=== PATIENT | male | born 1975 | race Two or more races ===

== ENCOUNTER 2016-08-11 13:53 | Inpatient (IN) | payer OTHER ==
[2016-08-11 15:27] VITALS: BMI 23.4
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
[2016-08-11] MEDS ORDERED: IBUPROFEN 400 MG TABLET (FP) PO PRN (16:42)
[2016-08-11] MEDS ORDERED: guaiFENesin/D-METHORPHAN HB 10 ML UNIT-DOSE CUPS PO PRN (16:42)
[2016-08-11] MEDS ORDERED: hydrOXYzine PAMOATE 50 MG CAPSULE (FP) PO PRN (16:42)
[2016-08-11] MEDS ORDERED: ACETAMINOPHEN 325 MG TABLET (FP) PO PRN (16:42)
[2016-08-11] MEDS ORDERED: MAGNESIUM CITRATE 300 ML BOTTLE PO PRN (16:42)
[2016-08-11] MEDS ORDERED: LOPERAMIDE HCL 2 MG CAPSULE PO PRN (16:42)
[2016-08-11] MEDS ORDERED: MAGNESIUM HYDROX 2400MG/30ML ORAL SUSPENSION 30 ML CUP PO PRN (16:42)
[2016-08-11] MEDS ORDERED: P-EPHED 60MG/TRIPROLIDI 2.5MG TABLET PO PRN (16:42)
[2016-08-11] MEDS ORDERED: MENTHOL/PHENOL 1 EACH UD MM PRN (16:42)
[2016-08-11] MEDS ORDERED: MAG HYDROX/AL HYDROX/SIMETH 30 ML UNIT-DOSE CUP PO PRN (16:42)
[2016-08-11] MEDS ORDERED: NICOTINE POLACRILEX 2 MG GUM BUC PRN (16:42)
[2016-08-11] MEDS: THIAMINE HCL 100 MG TABLET (FP) PO SCH (21:26)
[2016-08-11] MEDS ORDERED: diphenhydrAMINE HCL 50 MG CAPSULE PO PRN (22:00)
[2016-08-11 23:02] LABS: URINE APPEARANCE SLCLOUDY; URINE BILIRUBIN NEGATIVE (NEGATIVE); URINE BLOOD NEGATIVE (NEGATIVE); URINE GLUCOSE (UA) NEGATIVE (NEGATIVE); URINE KETONE TRACE (NEGATIVE); URINE LEUK ESTERASE NEGATIVE (NEGATIVE); URINE NITRITE NEGATIVE (NEGATIVE); URINE PROTEIN NEGATIVE (NEGATIVE); URINE UROBILINOGEN NEGATIVE E.U./dl (0.2-1.0)
[2016-08-11 23:03] LABS: URINE COLOR YELLOW
[2016-08-12] MEDS: METHADONE HCL 10 MG TABLET PO SCH (09:53)
[2016-08-12] MEDS: PRENATAL VITAMINS W/ FOLIC ACID TABLET (FP) PO SCH (10:01)
[2016-08-12] MEDS: NICOTINE 21 MG/24 HOURS TOPICAL PATCH TD SCH (10:01)
--- NOTE | 2016-08-12 18:30 | EKG ---
Test Reason : Blood Pressure : / mmHG Vent. Rate : 069 BPM Atrial Rate : 069 BPM P-R Int : 178 ms QRS Dur : 116 ms QT Int : 418 ms P-R-T Axes : 067 094 068 degrees QTc Int : 447 ms NORMAL SINUS RHYTHM RIGHTWARD AXIS BORDERLINE ECG NO PREVIOUS ECGS AVAILABLE Confirmed by HAN MONTELONGO, JOSE MARIA ([id number]) on 08/12/2016 6:30:32 PM Referred By: Confirmed By:JOSE MARIA SHORT MD
[2016-08-12] MEDS: THIAMINE HCL 100 MG TABLET (FP) PO SCH (21:26)
[2016-08-13] MEDS: METHADONE HCL 10 MG TABLET PO SCH (06:53)
[2016-08-13 07:15] VITALS: BP 132/79; PULSE 58; TEMP 98.3
[2016-08-13 09:58] LABS: MCH 29.4 pg (25.7-33.7); MCHC 33.3 g/dl (32.0-35.9); MEAN CELL VOLUME 88.4 fl (80-96); MEAN PLT VOLUME 8.3 fl (7.5-11.1); PLATELET COUNT 211 K/MM3 (134-434); RDW 13.9 % (11.9-15.9); WHITE BLOOD COUNT 5.8 K/mm3 (4.0-10.0)
[2016-08-13 10:34] LABS: ALBUMIN 3.3 g/dl (3.4-5.0); ANION GAP 7 (8-16); BILIRUBIN,TOTAL 0.2 mg/dL (0.2-1.0); CO2 28 mmol/L (21-32); CREATININE 0.8 mg/dL (0.7-1.3); GLUCOSE,RANDOM 90 mg/dL (74-106); SGOT/AST 39 U/L (15-37); SGPT/ALT 45 U/L (12-78); TOT PROT 8.5 g/dl (6.4-8.2)
[2016-08-13 10:35] LABS: ALK PHOS 59 U/L (45-117)
[2016-08-13] MEDS: NICOTINE 21 MG/24 HOURS TOPICAL PATCH TD SCH (10:44)
[2016-08-13] MEDS: PRENATAL VITAMINS W/ FOLIC ACID TABLET (FP) PO SCH (10:44)
--- NOTE | 2016-08-13 10:46 | PN ---
S Progress Note Note: PATIENT DID NOT WANT TO COMPLETE TREATMENT,SEEN BY COUNSELOR,DID NOT WANT TO WAIT,SIGNED RELEASE AMA, PSYCHIATRIST SEX WORKER OR ESCORT NOTIFIED BY NURSE
--- NOTE | 2016-08-14 09:18 | PN ---
[facility] Progress Note Note: patient signed ama on 08/13 prior to be seen by a psychiatrist, please see medical staff notes
== END 2016-08-13 11:30 | disposition left against medical advice (07) | DRG 770 ==
LOC: YASAS 13:53 → Y5N 18:06
PROVIDERS: ADMIT Psychiatry & Neurology Psychiatry; ATTEND Psychiatry & Neurology Psychiatry
PROC: HZ42ZZZ Group Counseling for Substance Abuse Treatment, Cognitive-Behavioral (ICD-10-PCS; principal; 2016-08-13)
DX: F11.23 Opioid dependence with withdrawal (principal); F25.9 Schizoaffective disorder, unspecified; B19.9 Unspecified viral hepatitis without hepatic coma; B18.2 Chronic viral hepatitis C; Z21 Asymptomatic human immunodeficiency virus [HIV] infection status; R63.4 Abnormal weight loss; Z68.23 Body mass index [BMI] 23.0-23.9, adult
CPT/HCPCS: 36415; 80053; 81003; 85027; 86593; 93005; 93010

== ENCOUNTER 2016-11-22 11:13 | Inpatient (IN) | payer OTHER ==
[2016-11-22 12:12] VITALS: BMI 21.2
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
[2016-11-22] MEDS ORDERED: LOPERAMIDE HCL 2 MG CAPSULE PO PRN (15:05)
[2016-11-22] MEDS ORDERED: guaiFENesin/D-METHORPHAN HB 10 ML UNIT-DOSE CUPS PO PRN (15:05)
[2016-11-22] MEDS ORDERED: MAGNESIUM HYDROX 2400MG/30ML ORAL SUSPENSION 30 ML CUP PO PRN (15:05)
[2016-11-22] MEDS ORDERED: MAGNESIUM CITRATE 300 ML BOTTLE PO PRN (15:05)
[2016-11-22] MEDS ORDERED: diphenhydrAMINE HCL 50 MG CAPSULE PO PRN (15:05)
[2016-11-22] MEDS ORDERED: chlordiazePOXIDE HCL 25 MG CAPSULE PO PRN (15:05)
[2016-11-22] MEDS ORDERED: NICOTINE POLACRILEX 2 MG GUM BC PRN (15:05)
[2016-11-22] MEDS ORDERED: MENTHOL/PHENOL 1 EACH UD MM PRN (15:05)
[2016-11-22] MEDS ORDERED: IBUPROFEN 400 MG TABLET (FP) PO PRN (15:05)
[2016-11-22] MEDS ORDERED: P-EPHED 60MG/TRIPROLIDI 2.5MG TABLET PO PRN (15:05)
[2016-11-22] MEDS ORDERED: ACETAMINOPHEN 325 MG TABLET (FP) PO PRN (15:05)
[2016-11-22] MEDS ORDERED: hydrOXYzine PAMOATE 50 MG CAPSULE (FP) PO PRN (15:05)
[2016-11-22] MEDS ORDERED: MAG HYDROX/AL HYDROX/SIMETH 30 ML UNIT-DOSE CUP PO PRN (15:05)
[2016-11-22] MEDS ORDERED: chlordiazePOXIDE HCL 25 MG CAPSULE PO ONE (15:13)
[2016-11-22] MEDS: NICOTINE 21 MG/24 HOURS TOPICAL PATCH TD SCH (15:51)
--- NOTE | 2016-11-22 16:39 | CONSULT ---
[facility] Psychiatric Consult - Data Date of interview: 11/22/16 Admission source: [facility] Identifying data: Patient is approached for psychiatric interview.Two attempts.Mr Upton refused." Leave me alone.I don't want to see or talk to nobody (sic)." Expletives were also used.Nursing staff is made aware.
[2016-11-22] MEDS: chlordiazePOXIDE HCL 25 MG CAPSULE PO SCH ×2 (17:26→22:08)
[2016-11-22 17:54] LABS: URINE APPEARANCE TURBID; URINE BILIRUBIN NEGATIVE (NEGATIVE); URINE BLOOD NEGATIVE (NEGATIVE); URINE COLOR AMBER; URINE GLUCOSE (UA) NEGATIVE (NEGATIVE); URINE KETONE TRACE (NEGATIVE); URINE LEUK ESTERASE NEGATIVE (NEGATIVE); URINE NITRITE NEGATIVE (NEGATIVE); URINE UROBILINOGEN NEGATIVE E.U./dl (0.2-1.0)
[2016-11-22 17:58] LABS: URINE PROTEIN 1+ (NEGATIVE)
[2016-11-22 17:59] LABS: URINE HYALINE CAST 16 /lpf; URINE MUCUS MANY; URINE RBC 10 /hpf (0-3); URINE WBC 147 /hpf (3-5)
[2016-11-22] MEDS: THIAMINE HCL 100 MG TABLET (FP) PO SCH (22:07)
[2016-11-23] MEDS: chlordiazePOXIDE HCL 25 MG CAPSULE PO SCH ×4 (06:07→22:13)
[2016-11-23] MEDS: EMTRICITABINE 200MG/TENOFOVIR 300MG PO SCH (07:53)
[2016-11-23] MEDS: RITONAVIR 100 MG TABLET PO SCH (07:53)
[2016-11-23] MEDS: ATAZANAVIR SO4 300 MG CAPSULE PO SCH (07:53)
[2016-11-23] MEDS: METHADONE HCL 10 MG TABLET PO SCH (09:55)
[2016-11-23] MEDS: NICOTINE 21 MG/24 HOURS TOPICAL PATCH TD SCH (09:56)
[2016-11-23] MEDS: PRENATAL VITAMINS W/ FOLIC ACID TABLET (FP) PO SCH (09:57)
[2016-11-23] MEDS ORDERED: ONDANSETRON *ODT* 4 MG TABLET SL PRN (09:59)
[2016-11-23] MEDS ORDERED: ATAZANAVIR SO4 200 MG CAPSULE PO SCH (10:00)
[2016-11-23 10:03] LABS: CALCIUM 9.3 mg/dL (8.5-10.1)
[2016-11-23 10:09] LABS: ALBUMIN 3.8 g/dl (3.4-5.0); ALK PHOS 80 U/L (45-117); ANION GAP 8 (8-16); BILIRUBIN,TOTAL 2.8 mg/dL (0.2-1.0); CO2 31 mmol/L (21-32); COCKROFT - GAULT 88.19; GLUCOSE,RANDOM 96 mg/dL (74-106); SGOT/AST 49 U/L (15-37); SGPT/ALT 54 U/L (12-78); TOT PROT 8.5 g/dl (6.4-8.2)
[2016-11-23 10:27] LABS: MCH 30.3 pg (25.7-33.7); MCHC 34.1 g/dl (32.0-35.9); MEAN CELL VOLUME 89.1 fl (80-96); MEAN PLT VOLUME 8.9 fl (7.5-11.1); PLATELET COUNT 220 K/MM3 (134-434); RDW 14.1 % (11.9-15.9); WHITE BLOOD COUNT 9.5 K/mm3 (4.0-10.0)
--- NOTE | 2016-11-23 11:37 | EKG ---
Test Reason : Blood Pressure : / mmHG Vent. Rate : 056 BPM Atrial Rate : 056 BPM P-R Int : 246 ms QRS Dur : 108 ms QT Int : 462 ms P-R-T Axes : 063 095 070 degrees QTc Int : 445 ms SINUS BRADYCARDIA WITH 1ST DEGREE A-V BLOCK RIGHTWARD AXIS MINIMAL VOLTAGE CRITERIA FOR LVH, MAY BE NORMAL VARIANT BORDERLINE ECG WHEN COMPARED WITH ECG OF 11-AUG-2016 22:26, [place] INTERVAL HAS INCREASED Confirmed by TRENT ALATORRE MD ([id number]) on 11/23/2016 11:37:45 AM Referred By: Deng Jason Confirmed By:TRENT ALATORRE MD
--- NOTE | 2016-11-23 11:58 | PN ---
[facility] CIWA - CIWA Score Nausea/Vomitin Muscle Tremors: 3 Anxiety: 4-Mod. Anxious/Guarded Agitation: 2 Paroxysmal Sweats: 4-Forehead w/Sweat Beads Orientation: 0-Oriented Tacttile Disturbances: 1-Very Mild Itch/Numbness Auditory Disturbances: 0-None Visual Disturbances: 2-Mild Sensitivity Headache: 0-None Present CIWA-Ar Total Score: 22 [facility] Progress Note (SOAP) Subjective: Vomiting, Diarrhea, Sweating, Tremors, Anxious. Objective: PT. A & O X 3, OBSERVED AMBULATING ON UNIT. PT. DENIES ANY UNUSUAL URINARY SYMPTOMS (PAIN, FREQUENCY, BURNING, INCONTINENCE) . 11/23/16 11:55 Vital Signs Temperature 98.8 F 11/23/16 09:51 Pulse Rate 71 11/23/16 09:51 Respiratory Rate 18 11/23/16 09:51 Blood Pressure 105/67 11/23/16 09:51 O2 Sat by Pulse Oximetry (%) Laboratory Last Values WBC 9.5 K/mm3 (4.0-10.0) D 11/23/16 06:00 RBC 4.30 M/mm3 (4.00-5.60) 11/23/16 06:00 Hgb 13.0 GM/dL (11.7-16.9) 11/23/16 06:00 Hct 38.3 % (35.4-49) 11/23/16 06:00 MCV 89.1 fl (80-96) 11/23/16 06:00 MCHC 34.1 g/dl (32.0-35.9) 11/23/16 06:00 RDW 14.1 % (11.9-15.9) 11/23/16 06:00 Plt Count 220 K/MM3 (134-434) 11/23/16 06:00 MPV 8.9 fl (7.5-11.1) 11/23/16 06:00 Sodium 136 mmol/L (136-145) 11/23/16 06:00 Potassium 4.0 mmol/L (3.5-5.1) 11/23/16 06:00 Chloride 97 mmol/L (98-107) L 11/23/16 06:00 Carbon Dioxide 31 mmol/L (21-32) 11/23/16 06:00 Anion Gap 8 (8-16) 11/23/16 06:00 BUN 14 mg/dL (7-18) D 11/23/16 06:00 Creatinine 1.0 mg/dL (0.7-1.3) D 11/23/16 06:00 Creat Clearance w eGFR > 60 (>60) 11/23/16 06:00 Random Glucose 96 mg/dL (74-106) 11/23/16 06:00 Calcium 9.3 mg/dL (8.5-10.1) 11/23/16 06:00 Total Bilirubin 2.8 mg/dL (0.2-1.0) H D 11/23/16 06:00 AST 49 U/L (15-37) H D 11/23/16 06:00 ALT 54 U/L (12-78) 11/23/16 06:00 Alkaline Phosphatase 80 U/L (45-117) D 11/23/16 06:00 Total Protein 8.5 g/dl (6.4-8.2) H 11/23/16 06:00 Albumin 3.8 g/dl (3.4-5.0) 11/23/16 06:00 Urine Color Lori 11/22/16 15:30 Urine Appearance Turbid 11/22/16 15:30 Urine pH 5.0 (5.0-8.0) 11/22/16 15:30 Ur Specific [place] >= 1.030 (1.005-1.025) H 11/22/16 15:30 Urine Protein 1+ (NEGATIVE) H 11/22/16 15:30 Urine Glucose (UA) Negative (NEGATIVE) 11/22/16 15:30 Urine Ketones Trace (NEGATIVE) H 11/22/16 15:30 Urine Blood Negative (NEGATIVE) 11/22/16 15:30 Urine Nitrite Negative (NEGATIVE) 11/22/16 15:30 Urine Bilirubin Negative (NEGATIVE) 11/22/16 15:30 Urine Urobilinogen Negative E.U./dl (0.2-1.0) 11/22/16 15:30 Ur Leukocyte Esterase Negative (NEGATIVE) 11/22/16 15:30 Urine RBC 10 /hpf (0-3) 11/22/16 15:30 Urine WBC 147 /hpf (3-5) 11/22/16 15:30 Ur Epithelial Cells Rare /hpf (FEW) 11/22/16 15:30 Hyaline Casts 16 /lpf 11/22/16 15:30 Urine Mucus Many 11/22/16 15:30 LABS NOTED. 11/23/16 11:58 11/23/16 17:05 Assessment: 11/23/16 11:57 WITHDRAWAL SYMPTOMS. Plan: CONTINUE DETOX. REPEAT UA FOR ABNORMAL ADMISSION UA LEVELS. PRN ZOFRAN SL FOR VOMITING. PRN IMMODIUM FOR DIARRHEA. ADVISED PATIENT TO FOLLOW-UP WITH VISUAL MERCHANDISING ASSISTANT AFTER DISCHARGE FROM DETOX FOR GENERAL MEDICAL ASSESSMENT AND FOR ABNORMAL DETOX ADMISSION LAB VALUES.
[2016-11-23] MEDS: THIAMINE HCL 100 MG TABLET (FP) PO SCH (22:13)
[2016-11-23 23:18] LABS: URINE APPEARANCE CLEAR; URINE BILIRUBIN NEGATIVE (NEGATIVE); URINE BLOOD NEGATIVE (NEGATIVE); URINE COLOR LTYELLOW; URINE GLUCOSE (UA) NEGATIVE (NEGATIVE); URINE KETONE NEGATIVE (NEGATIVE); URINE LEUK ESTERASE NEGATIVE (NEGATIVE); URINE NITRITE NEGATIVE (NEGATIVE); URINE PROTEIN NEGATIVE (NEGATIVE); URINE UROBILINOGEN NEGATIVE E.U./dl (0.2-1.0)
[2016-11-24] MEDS: METHADONE HCL 10 MG TABLET PO SCH (05:22)
[2016-11-24] MEDS: chlordiazePOXIDE HCL 25 MG CAPSULE PO SCH ×2 (05:22→10:04)
[2016-11-24] MEDS: RITONAVIR 100 MG TABLET PO SCH (07:15)
[2016-11-24] MEDS: ATAZANAVIR SO4 300 MG CAPSULE PO SCH (07:16)
[2016-11-24] MEDS: EMTRICITABINE 200MG/TENOFOVIR 300MG PO SCH (07:17)
[2016-11-24] MEDS: PRENATAL VITAMINS W/ FOLIC ACID TABLET (FP) PO SCH (10:04)
[2016-11-24] MEDS: NICOTINE 21 MG/24 HOURS TOPICAL PATCH TD SCH (10:05)
--- NOTE | 2016-11-24 12:32 | PN ---
S CIWA - CIWA Score Nausea/Vomitin Muscle Tremors: 3 Anxiety: 4-Mod. Anxious/Guarded Agitation: 2 Paroxysmal Sweats: 3 Orientation: 0-Oriented Tacttile Disturbances: 2-Mild Itch/Numbness/Burn Auditory Disturbances: 0-None Visual Disturbances: 2-Mild Sensitivity Headache: 0-None Present CIWA-Ar Total Score: 18 [facility] Progress Note (SOAP) Subjective: Stomach Cramping, Diarrhea, Sweating, Interrupted Sleep. Objective: PT. A & O X 3, OBSERVED AMBULATING ON UNIT. PT. DENIES ANY UNUSUAL URINARY SYMPTOMS (BURNING, PAIN FREQUENCY, INCONTINENCE). 11/24/16 12:29 Vital Signs Temperature 97.8 F 11/24/16 09:56 Pulse Rate 66 11/24/16 09:56 Respiratory Rate 18 11/24/16 09:56 Blood Pressure 110/73 11/24/16 09:56 O2 Sat by Pulse Oximetry (%) Laboratory Last Values WBC 9.5 K/mm3 (4.0-10.0) D 11/23/16 06:00 RBC 4.30 M/mm3 (4.00-5.60) 11/23/16 06:00 Hgb 13.0 GM/dL (11.7-16.9) 11/23/16 06:00 Hct 38.3 % (35.4-49) 11/23/16 06:00 MCV 89.1 fl (80-96) 11/23/16 06:00 MCHC 34.1 g/dl (32.0-35.9) 11/23/16 06:00 RDW 14.1 % (11.9-15.9) 11/23/16 06:00 Plt Count 220 K/MM3 (134-434) 11/23/16 06:00 MPV 8.9 fl (7.5-11.1) 11/23/16 06:00 Sodium 136 mmol/L (136-145) 11/23/16 06:00 Potassium 4.0 mmol/L (3.5-5.1) 11/23/16 06:00 Chloride 97 mmol/L (98-107) L 11/23/16 06:00 Carbon Dioxide 31 mmol/L (21-32) 11/23/16 06:00 Anion Gap 8 (8-16) 11/23/16 06:00 BUN 14 mg/dL (7-18) D 11/23/16 06:00 Creatinine 1.0 mg/dL (0.7-1.3) D 11/23/16 06:00 Creat Clearance w eGFR > 60 (>60) 11/23/16 06:00 Random Glucose 96 mg/dL (74-106) 11/23/16 06:00 Calcium 9.3 mg/dL (8.5-10.1) 11/23/16 06:00 Total Bilirubin 2.8 mg/dL (0.2-1.0) H D 11/23/16 06:00 AST 49 U/L (15-37) H D 11/23/16 06:00 ALT 54 U/L (12-78) 11/23/16 06:00 Alkaline Phosphatase 80 U/L (45-117) D 11/23/16 06:00 Total Protein 8.5 g/dl (6.4-8.2) H 11/23/16 06:00 Albumin 3.8 g/dl (3.4-5.0) 11/23/16 06:00 Urine Color Ltyellow 11/23/16 23:00 Urine Appearance Clear 11/23/16 23:00 Urine pH 5.0 (5.0-8.0) 11/23/16 23:00 Ur Specific [place] 1.020 (1.005-1.025) 11/23/16 23:00 Urine Protein Negative (NEGATIVE) 11/23/16 23:00 Urine Glucose (UA) Negative (NEGATIVE) 11/23/16 23:00 Urine Ketones Negative (NEGATIVE) 11/23/16 23:00 Urine Blood Negative (NEGATIVE) 11/23/16 23:00 Urine Nitrite Negative (NEGATIVE) 11/23/16 23:00 Urine Bilirubin Negative (NEGATIVE) 11/23/16 23:00 Urine Urobilinogen Negative E.U./dl (0.2-1.0) 11/23/16 23:00 Ur Leukocyte Esterase Negative (NEGATIVE) 11/23/16 23:00 Urine RBC 10 /hpf (0-3) 11/22/16 15:30 Urine WBC 147 /hpf (3-5) 11/22/16 15:30 Ur Epithelial Cells Rare /hpf (FEW) 11/22/16 15:30 Hyaline Casts 16 /lpf 11/22/16 15:30 Urine Mucus Many 11/22/16 15:30 RPR Titer Nonreactive (NONREACTIVE) 11/23/16 06:00 LABS NOTED. RESULTS OF UA FROM 11/23/2016 NOTED. Assessment: 11/24/16 12:31 WITHDRAWAL SYMPTOMS. Plan: CONTINUE DETOX.
[2016-11-24] MEDS: chlordiazePOXIDE 5 MG CAPSULE PO SCH ×2 (17:48→22:19)
[2016-11-24] MEDS: THIAMINE HCL 100 MG TABLET (FP) PO SCH (22:19)
[2016-11-25] MEDS: chlordiazePOXIDE 5 MG CAPSULE PO SCH ×2 (06:01→10:14)
[2016-11-25] MEDS: METHADONE HCL 10 MG TABLET PO SCH (06:01)
[2016-11-25] MEDS: EMTRICITABINE 200MG/TENOFOVIR 300MG PO SCH (07:44)
[2016-11-25] MEDS: ATAZANAVIR SO4 300 MG CAPSULE PO SCH (07:44)
[2016-11-25] MEDS: RITONAVIR 100 MG TABLET PO SCH (07:45)
[2016-11-25] MEDS: PRENATAL VITAMINS W/ FOLIC ACID TABLET (FP) PO SCH (10:14)
[2016-11-25] MEDS: NICOTINE 21 MG/24 HOURS TOPICAL PATCH TD SCH (10:14)
[2016-11-25] MEDS: chlordiazePOXIDE HCL 10 MG CAPSULE PO SCH ×2 (17:50→22:10)
--- NOTE | 2016-11-25 18:29 | PN ---
[facility] Progress Note (SOAP) Subjective: Stomach Cramping, Interrupted Sleep, Tremors, Body Aches, Sweating. Objective: PT. A & O X 3, OBSERVED AMBULATING ON UNIT. 11/25/16 18:26 Vital Signs Temperature 96.5 F L 11/25/16 13:09 Pulse Rate 58 L 11/25/16 13:09 Respiratory Rate 18 11/25/16 13:09 Blood Pressure 102/61 11/25/16 13:09 O2 Sat by Pulse Oximetry (%) Laboratory Tests 11/22/16 11/23/16 11/23/16 15:30 06:00 06:00 WBC 9.5 D RBC 4.30 Hgb 13.0 Hct 38.3 MCV 89.1 MCHC 34.1 RDW 14.1 Plt Count 220 MPV 8.9 Sickle Cell Screen Sodium 136 Potassium 4.0 Chloride 97 L Carbon Dioxide 31 Anion Gap 8 BUN 14 D Creatinine 1.0 D Creat Clearance w eGFR > 60 Random Glucose 96 Calcium 9.3 Total Bilirubin 2.8 H D AST 49 H D ALT 54 Alkaline Phosphatase 80 D Total Protein 8.5 H Albumin 3.8 Urine Color Lori Urine Appearance Turbid Urine pH 5.0 Ur Specific [place] >= 1.030 H Urine Protein 1+ H Urine Glucose (UA) Negative Urine Ketones Trace H Urine Blood Negative Urine Nitrite Negative Urine Bilirubin Negative Urine Urobilinogen Negative Ur Leukocyte Esterase Negative Urine RBC 10 Urine WBC 147 Ur Epithelial Cells Rare Hyaline Casts 16 Urine Mucus Many RPR Titer 11/23/16 11/23/16 11/24/16 06:00 23:00 06:00 WBC RBC Hgb Hct MCV MCHC RDW Plt Count MPV Sickle Cell Screen Cancelled Sodium Potassium Chloride Carbon Dioxide Anion Gap BUN Creatinine Creat Clearance w eGFR Random Glucose Calcium Total Bilirubin AST ALT Alkaline Phosphatase Total Protein Albumin Urine Color Ltyellow Urine Appearance Clear Urine pH 5.0 Ur Specific [place] 1.020 Urine Protein Negative Urine Glucose (UA) Negative Urine Ketones Negative Urine Blood Negative Urine Nitrite Negative Urine Bilirubin Negative Urine Urobilinogen Negative Ur Leukocyte Esterase Negative Urine RBC Urine WBC Ur Epithelial Cells Hyaline Casts Urine Mucus RPR Titer Nonreactive LABS NOTED. Assessment: 11/25/16 18:27 WITHDRAWAL SYMPTOMS. Plan: CONTINUE DETOX.
[2016-11-25] MEDS: THIAMINE HCL 100 MG TABLET (FP) PO SCH (22:10)
[2016-11-25 22:33] VITALS: TEMP 97.5
[2016-11-26] MEDS: chlordiazePOXIDE HCL 10 MG CAPSULE PO SCH (05:35)
[2016-11-26] MEDS: METHADONE HCL 10 MG TABLET PO SCH (05:36)
[2016-11-26 06:33] VITALS: BP 101/67; PULSE 53
[2016-11-26] MEDS: ATAZANAVIR SO4 300 MG CAPSULE PO SCH (07:33)
[2016-11-26] MEDS: EMTRICITABINE 200MG/TENOFOVIR 300MG PO SCH (07:33)
[2016-11-26] MEDS: RITONAVIR 100 MG TABLET PO SCH (07:34)
--- NOTE | 2016-11-26 13:40 | DS ---
[facility] Detox Discharge Summary Admission Date: 11/22/16 Discharge Date: 11/26/16 - History Present History: Alcohol Dependence, Cocaine Dependence, Opioid Dependence, MMTP Pertinent Past History: Hepatitis C HIV - Physical Exam Results Vital Signs: Vital Signs Temperature 97.5 F L 11/26/16 06:33 Pulse Rate 53 L 11/26/16 06:33 Respiratory Rate 16 11/26/16 06:33 Blood Pressure 101/67 11/26/16 06:33 O2 Sat by Pulse Oximetry (%) Pertinent Admission Physical Exam Findings: Withdrawal symptoms Laboratory Tests 11/22/16 11/23/16 11/23/16 15:30 06:00 06:00 WBC 9.5 D RBC 4.30 Hgb 13.0 Hct 38.3 MCV 89.1 MCHC 34.1 RDW 14.1 Plt Count 220 MPV 8.9 Sickle Cell Screen Sodium 136 Potassium 4.0 Chloride 97 L Carbon Dioxide 31 Anion Gap 8 BUN 14 D Creatinine 1.0 D Creat Clearance w eGFR > 60 Random Glucose 96 Calcium 9.3 Total Bilirubin 2.8 H D AST 49 H D ALT 54 Alkaline Phosphatase 80 D Total Protein 8.5 H Albumin 3.8 Urine Color Lori Urine Appearance Turbid Urine pH 5.0 Ur Specific [place] >= 1.030 H Urine Protein 1+ H Urine Glucose (UA) Negative Urine Ketones Trace H Urine Blood Negative Urine Nitrite Negative Urine Bilirubin Negative Urine Urobilinogen Negative Ur Leukocyte Esterase Negative Urine RBC 10 Urine WBC 147 Ur Epithelial Cells Rare Hyaline Casts 16 Urine Mucus Many RPR Titer 11/23/16 11/23/16 11/24/16 06:00 23:00 06:00 WBC RBC Hgb Hct MCV MCHC RDW Plt Count MPV Sickle Cell Screen Cancelled Sodium Potassium Chloride Carbon Dioxide Anion Gap BUN Creatinine Creat Clearance w eGFR Random Glucose Calcium Total Bilirubin AST ALT Alkaline Phosphatase Total Protein Albumin Urine Color Ltyellow Urine Appearance Clear Urine pH 5.0 Ur Specific [place] 1.020 Urine Protein Negative Urine Glucose (UA) Negative Urine Ketones Negative Urine Blood Negative Urine Nitrite Negative Urine Bilirubin Negative Urine Urobilinogen Negative Ur Leukocyte Esterase Negative Urine RBC Urine WBC Ur Epithelial Cells Hyaline Casts Urine Mucus RPR Titer Nonreactive Labs noted - Treatment Hospital Course: Detox Protocol Followed, Detoxed Safely, Responded well, Discharged Condition Good - Medication Discharge Medications: Ambulatory Orders Atazanavir [Reyataz -] 400 mg PO DAILY 11/22/16 Emtricitabine/Tenofovir (Tdf) [Truvada 200 mg-300 mg Tablet] 1 each PO DAILY Quetiapine Fumarate [Seroquel -] 400 mg PO HS 11/22/16 Ritonavir [Norvir -] 100 mg PO DAILY 11/22/16 - Diagnosis (1) Opioid dependence Status: Active (2) bipolar disorder Status: Chronic (3) Alcohol dependence with uncomplicated withdrawal Status: Acute (4) Cocaine dependence, uncomplicated Status: Chronic (5) Hepatitis C Status: Chronic Qualifiers: Viral hepatitis chronicity: chronic Hepatic coma status: without hepatic coma Qualified Code(s): B18.2 - Chronic viral hepatitis C (6) Human immunodeficiency virus infection Status: Chronic (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
== END 2016-11-26 08:46 | disposition home or self-care (01) | DRG 773 ==
LOC: YASAS 11:13 → Y3N 13:35
PROVIDERS: ADMIT Internal Medicine Addiction Medicine; ATTEND Internal Medicine Addiction Medicine
PROC: HZ2ZZZZ Detoxification Services for Substance Abuse Treatment (ICD-10-PCS; principal; 2016-11-26)
DX: F11.20 Opioid dependence, uncomplicated (principal); F10.230 Alcohol dependence with withdrawal, uncomplicated; F17.210 Nicotine dependence, cigarettes, uncomplicated; F14.20 Cocaine dependence, uncomplicated; F31.9 Bipolar disorder, unspecified; F25.9 Schizoaffective disorder, unspecified; B18.2 Chronic viral hepatitis C; Z21 Asymptomatic human immunodeficiency virus [HIV] infection status
CPT/HCPCS: 36415; 80053; 81003; 81015; 85027; 86593; 93005; 93010

== ENCOUNTER 2017-02-08 13:08 | Inpatient (IN) | payer OTHER ==
[2017-02-08 15:08] VITALS: BMI 21.2
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
[2017-02-08] MEDS ORDERED: P-EPHED 60MG/TRIPROLIDI 2.5MG TABLET PO PRN (17:42)
[2017-02-08] MEDS ORDERED: MAGNESIUM HYDROX 2400MG/30ML ORAL SUSPENSION 30 ML CUP PO PRN (17:42)
[2017-02-08] MEDS ORDERED: MAGNESIUM CITRATE 300 ML BOTTLE PO PRN (17:42)
[2017-02-08] MEDS ORDERED: chlordiazePOXIDE HCL 25 MG CAPSULE PO PRN (17:42)
[2017-02-08] MEDS ORDERED: LOPERAMIDE HCL 2 MG CAPSULE PO PRN (17:42)
[2017-02-08] MEDS ORDERED: IBUPROFEN 400 MG TABLET (FP) PO PRN (17:42)
[2017-02-08] MEDS ORDERED: ACETAMINOPHEN 325 MG TABLET (FP) PO PRN (17:42)
[2017-02-08] MEDS ORDERED: MAG HYDROX/AL HYDROX/SIMETH 30 ML UNIT-DOSE CUP PO PRN (17:42)
[2017-02-08] MEDS ORDERED: MENTHOL/PHENOL 1 EACH UD MM PRN (17:42)
[2017-02-08] MEDS ORDERED: guaiFENesin/D-METHORPHAN HB 10 ML UNIT-DOSE CUPS PO PRN (17:42)
[2017-02-08] MEDS ORDERED: hydrOXYzine PAMOATE 50 MG CAPSULE (FP) PO PRN (17:42)
[2017-02-08] MEDS ORDERED: METHADONE HCL 10 MG TABLET (FOR DETOX USE ONLY) PO ONE ×2 (17:42→23:00)
[2017-02-08] MEDS ORDERED: chlordiazePOXIDE HCL 25 MG CAPSULE PO ONE (17:42)
[2017-02-08] MEDS: chlordiazePOXIDE HCL 25 MG CAPSULE PO SCH (22:20)
[2017-02-08] MEDS: diphenhydrAMINE HCL 50 MG CAPSULE PO PRN (22:21)
[2017-02-08] MEDS: THIAMINE HCL 100 MG TABLET (FP) PO SCH (22:21)
[2017-02-08 22:58] LABS: URINE APPEARANCE CLEAR; URINE BILIRUBIN NEGATIVE (NEGATIVE); URINE BLOOD NEGATIVE (NEGATIVE); URINE COLOR DKYELLOW; URINE GLUCOSE (UA) NEGATIVE (NEGATIVE); URINE KETONE NEGATIVE (NEGATIVE); URINE LEUK ESTERASE NEGATIVE (NEGATIVE); URINE NITRITE NEGATIVE (NEGATIVE); URINE PROTEIN NEGATIVE (NEGATIVE); URINE UROBILINOGEN NEGATIVE mg/dL (0.2-1.0)
[2017-02-09] MEDS: chlordiazePOXIDE HCL 25 MG CAPSULE PO SCH ×4 (06:10→22:10)
[2017-02-09] MEDS ORDERED: ATAZANAVIR SO4 200 MG CAPSULE PO SCH ×2 (10:00)
[2017-02-09] MEDS ORDERED: METHADONE HCL 10 MG TABLET (FOR DETOX USE ONLY) PO SCH (10:00)
[2017-02-09 10:09] LABS: MCHC 33.3 g/dl (32.0-35.9); MEAN CELL VOLUME 89.9 fl (80-96); PLATELET COUNT 209 K/MM3 (134-434); RDW 13.9 % (11.9-15.9); WHITE BLOOD COUNT 4.7 K/mm3 (4.0-10.0)
[2017-02-09] MEDS ORDERED: ATAZANAVIR SO4 300 MG CAPSULE PO SCH (10:12)
[2017-02-09] MEDS: PRENATAL VITAMINS W/ FOLIC ACID TABLET (FP) PO SCH (10:17)
--- NOTE | 2017-02-09 10:43 | CONSULT ---
[facility] Psychiatric Consult - Data Date of interview: 02/09/17 Admission source: [facility] Identifying data: Patient is approached on THREE occasions for psychiatric interview.Mr Upton refused to have any interaction with recruitment consultant.Psychiatric evaluation waived due to absence of cooperation on the part of the patient.Nursing staff is made aware.
[2017-02-09 10:50] LABS: ALBUMIN 3.1 g/dl (3.4-5.0); ALK PHOS 64 U/L (45-117); ANION GAP 5 (8-16); BILIRUBIN,TOTAL 0.2 mg/dL (0.2-1.0); CALCIUM 9.1 mg/dL (8.5-10.1); CO2 32 mmol/L (21-32); CREATININE 0.9 mg/dL (0.7-1.3); GLUCOSE,RANDOM 86 mg/dL (74-106); SGOT/AST 36 U/L (15-37); SGPT/ALT 43 U/L (12-78); TOT PROT 7.7 g/dl (6.4-8.2)
[2017-02-09] MEDS: ATAZANAVIR SO4 300 MG CAPSULE PO SCH (11:30)
[2017-02-09] MEDS: RITONAVIR 100 MG TABLET PO SCH (11:31)
[2017-02-09] MEDS: EMTRICITABINE 200MG/TENOFOVIR 300MG PO SCH (11:32)
--- NOTE | 2017-02-09 11:53 | PN ---
S CIWA - CIWA Score Nausea/Vomitin-No Nausea/No Vomiting Muscle Tremors: 4-Moderate,w/Arms Extend Anxiety: 4-Mod. Anxious/Guarded Agitation: 4-Moderately Restless Paroxysmal Sweats: 1-Minimal Palms Moist Orientation: 0-Oriented Tacttile Disturbances: 3-Moderate Itch/Numb/Burn Auditory Disturbances: 0-None Visual Disturbances: 0-None Headache: 0-None Present CIWA-Ar Total Score: 16 BHS COWS - Scale Resting Pulse: 0= [place] 80 or Below Sweatin= Chills/Flushing Restless Observation: 3= Extraneous Movement Pupil Size: 2= Moderately Dilated Bone or Joint Aches: 4=Acute Joint/Muscle Pain Runny Nose/ Eye Tearin= Nasal Congestion GI Upset > 30mins: 1= Stomach Cramp Tremor Observation of Outstretched Hands: 2= Slight Tremor Visible Yawning Observation: 2= >3x During Session Anxiety or Irritability: 2=Irritable/Anxious Goose Flesh Skin: 0=Smooth Skin COWS Score: 18 BHS Progress Note (SOAP) Subjective: ANXIETY,TREMORS,IRRITABILITY,SWEATS/CHILLS,INTERMITTENT SLEEP. ADDENDUM: PT STATES HE HAS HIS PCP AT [facility] BUT DOES NOT KNOW HIS PMD'S NAME. PT HAS BEEN NONCOMPLIANT WITH HIS ANTIRETROVIRAL MEDICATIONS AND I.D CLINIC FOLLOW UP VISITS PER PHARMACY RECORDS AND PT HX OF CONTINUOS ILLICIT DRUG AND ALCOHOL USE ON THE STREET. PT IS AWARE THAT HE HAS TO FOLLOW UP AT [facility] TO SEE HIS PMD AND ROUTINE WORKUP VISITS/RX UPON DISCHARGE AFTER DETOX. Objective: 02/09/17 11:47 Vital Signs Temperature 97.8 F 02/09/17 10:03 Pulse Rate 59 L 02/09/17 10:03 Respiratory Rate 18 02/09/17 10:03 Blood Pressure 109/71 02/09/17 10:03 O2 Sat by Pulse Oximetry (%) Laboratory Last Values WBC 4.7 K/mm3 (4.0-10.0) D 02/09/17 07:30 RBC 4.11 M/mm3 (4.00-5.60) 02/09/17 07:30 Hgb 12.3 GM/dL (11.7-16.9) 02/09/17 07:30 Hct 37.0 % (35.4-49) 02/09/17 07:30 MCV 89.9 fl (80-96) 02/09/17 07:30 MCH 30.0 pg (25.7-33.7) 02/09/17 07:30 MCHC 33.3 g/dl (32.0-35.9) 02/09/17 07:30 RDW 13.9 % (11.9-15.9) 02/09/17 07:30 Plt Count 209 K/MM3 (134-434) 02/09/17 07:30 MPV 8.0 fl (7.5-11.1) D 02/09/17 07:30 Sodium 139 mmol/L (136-145) 02/09/17 07:30 Potassium 4.3 mmol/L (3.5-5.1) 02/09/17 07:30 Chloride 102 mmol/L (98-107) 02/09/17 07:30 Carbon Dioxide 32 mmol/L (21-32) 02/09/17 07:30 Anion Gap 5 (8-16) L 02/09/17 07:30 BUN 10 mg/dL (7-18) D 02/09/17 07:30 Creatinine 0.9 mg/dL (0.7-1.3) 02/09/17 07:30 Creat Clearance w eGFR > 60 (>60) 02/09/17 07:30 Random Glucose 86 mg/dL (74-106) 02/09/17 07:30 Calcium 9.1 mg/dL (8.5-10.1) 02/09/17 07:30 Total Bilirubin 0.2 mg/dL (0.2-1.0) D 02/09/17 07:30 AST 36 U/L (15-37) D 02/09/17 07:30 ALT 43 U/L (12-78) D 02/09/17 07:30 Alkaline Phosphatase 64 U/L (45-117) 02/09/17 07:30 Total Protein 7.7 g/dl (6.4-8.2) 02/09/17 07:30 Albumin 3.1 g/dl (3.4-5.0) L 02/09/17 07:30 Urine Color Dkyellow 02/08/17 22:50 Urine Appearance Clear 02/08/17 22:50 Urine pH 6.0 (5.0-8.0) 02/08/17 22:50 Urine Protein Negative (NEGATIVE) 02/08/17 22:50 Urine Glucose (UA) Negative (NEGATIVE) 02/08/17 22:50 Urine Ketones Negative (NEGATIVE) 02/08/17 22:50 Urine Blood Negative (NEGATIVE) 02/08/17 22:50 Urine Nitrite Negative (NEGATIVE) 02/08/17 22:50 Urine Bilirubin Negative (NEGATIVE) 02/08/17 22:50 Urine Urobilinogen Negative mg/dL (0.2-1.0) 02/08/17 22:50 Ur Leukocyte Esterase Negative (NEGATIVE) 02/08/17 22:50 Assessment: 02/09/17 11:47 WITHDRAWAL SX Plan: CONTININUE DETOX.
[2017-02-09] MEDS: diphenhydrAMINE HCL 50 MG CAPSULE PO PRN (22:10)
[2017-02-09] MEDS: THIAMINE HCL 100 MG TABLET (FP) PO SCH (22:10)
[2017-02-10] MEDS: chlordiazePOXIDE HCL 25 MG CAPSULE PO SCH ×3 (05:37→17:31)
--- NOTE | 2017-02-10 08:16 | EKG ---
Test Reason : Blood Pressure : / mmHG Vent. Rate : 051 BPM Atrial Rate : 051 BPM P-R Int : 170 ms QRS Dur : 104 ms QT Int : 468 ms P-R-T Axes : 064 095 070 degrees QTc Int : 431 ms SINUS BRADYCARDIA WITH SINUS ARRHYTHMIA RIGHTWARD AXIS BORDERLINE ECG WHEN COMPARED WITH ECG OF 22-NOV-2016 15:01, [place] INTERVAL HAS DECREASED Confirmed by GIBRAN MONTERROOS MD ([id number]) on 02/10/2017 8:16:00 AM Referred By: Confirmed By:GIBRAN MONTERROSO MD
[2017-02-10] MEDS: ATAZANAVIR SO4 300 MG CAPSULE PO SCH (10:22)
[2017-02-10] MEDS: PRENATAL VITAMINS W/ FOLIC ACID TABLET (FP) PO SCH (10:22)
[2017-02-10] MEDS: METHADONE HCL 5 MG TABLET (FOR DETOX USE ONLY) PO SCH (10:23)
[2017-02-10] MEDS: EMTRICITABINE 200MG/TENOFOVIR 300MG PO SCH (10:23)
[2017-02-10] MEDS: RITONAVIR 100 MG TABLET PO SCH (10:24)
[2017-02-10] MEDS ORDERED: ONDANSETRON *ODT* 4 MG TABLET SL PRN (11:28)
--- NOTE | 2017-02-10 17:47 | PN ---
[facility] CIWA - CIWA Score Nausea/Vomitin Muscle Tremors: 3 Anxiety: 3 Agitation: 2 Paroxysmal Sweats: 3 Orientation: 0-Oriented Tacttile Disturbances: 0-None Auditory Disturbances: 0-None Visual Disturbances: 2-Mild Sensitivity Headache: 0-None Present CIWA-Ar Total Score: 18 BHS COWS - Scale Resting Pulse: 0= [place] 80 or Below Sweatin=Flushed/Facial Moisture Restless Observation: 1= Difficult to Sit Still Pupil Size: 0= Normal to Room Light Bone or Joint Aches: 2= Severe Diffuse Aches Runny Nose/ Eye Tearin= Runny Nose/Eyes GI Upset > 30mins: 3= Vomiting/Diarrhea Tremor Observation of Outstretched Hands: 2= Slight Tremor Visible Yawning Observation: 1= 1-2x During Session Anxiety or Irritability: 2=Irritable/Anxious Goose Flesh Skin: 0=Smooth Skin COWS Score: 15 S Progress Note (SOAP) Subjective: Stomach Cramping, Vomiting, Lower Back Ache, Sweating, Interrupted Sleep. Objective: PT. A & O X 3. NO ACUTE DISTRESS. 02/10/17 17:46 Vital Signs Temperature 96.5 F L 02/10/17 14:19 Pulse Rate 52 L 02/10/17 14:19 Respiratory Rate 20 02/10/17 14:19 Blood Pressure 105/70 02/10/17 14:19 O2 Sat by Pulse Oximetry (%) Laboratory Tests 02/08/17 02/09/17 02/09/17 22:50 07:30 07:30 WBC 4.7 D RBC 4.11 Hgb 12.3 Hct 37.0 MCV 89.9 MCH 30.0 MCHC 33.3 RDW 13.9 Plt Count 209 MPV 8.0 D Sodium 139 Potassium 4.3 Chloride 102 Carbon Dioxide 32 Anion Gap 5 L BUN 10 D Creatinine 0.9 Creat Clearance w eGFR > 60 Random Glucose 86 Calcium 9.1 Total Bilirubin 0.2 D AST 36 D ALT 43 D Alkaline Phosphatase 64 Total Protein 7.7 Albumin 3.1 L Urine Color Dkyellow Urine Appearance Clear Urine pH 6.0 Ur Specific [place] 1.025 Urine Protein Negative Urine Glucose (UA) Negative Urine Ketones Negative Urine Blood Negative Urine Nitrite Negative Urine Bilirubin Negative Urine Urobilinogen Negative Ur Leukocyte Esterase Negative RPR Titer 02/09/17 07:30 WBC RBC Hgb Hct MCV MCH MCHC RDW Plt Count MPV Sodium Potassium Chloride Carbon Dioxide Anion Gap BUN Creatinine Creat Clearance w eGFR Random Glucose Calcium Total Bilirubin AST ALT Alkaline Phosphatase Total Protein Albumin Urine Color Urine Appearance Urine pH Ur Specific [place] Urine Protein Urine Glucose (UA) Urine Ketones Urine Blood Urine Nitrite Urine Bilirubin Urine Urobilinogen Ur Leukocyte Esterase RPR Titer Nonreactive labs noted. Assessment: 02/10/17 17:46 WITHDRAWAL SYMPTOMS. Plan: CONTINUE DETOX.
[2017-02-10] MEDS: THIAMINE HCL 100 MG TABLET (FP) PO SCH (22:27)
[2017-02-10] MEDS: chlordiazePOXIDE 5 MG CAPSULE PO SCH (22:27)
[2017-02-10] MEDS: diphenhydrAMINE HCL 50 MG CAPSULE PO PRN (22:29)
[2017-02-11] MEDS: chlordiazePOXIDE 5 MG CAPSULE PO SCH ×3 (05:54→17:40)
[2017-02-11] MEDS: ATAZANAVIR SO4 300 MG CAPSULE PO SCH (10:31)
[2017-02-11] MEDS: PRENATAL VITAMINS W/ FOLIC ACID TABLET (FP) PO SCH (10:31)
[2017-02-11] MEDS: METHADONE HCL 5 MG TABLET (FOR DETOX USE ONLY) PO SCH (10:31)
[2017-02-11] MEDS: RITONAVIR 100 MG TABLET PO SCH (10:32)
[2017-02-11] MEDS: EMTRICITABINE 200MG/TENOFOVIR 300MG PO SCH (10:32)
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
[2017-02-11] MEDS: chlordiazePOXIDE HCL 10 MG CAPSULE PO SCH (22:26)
[2017-02-11] MEDS: THIAMINE HCL 100 MG TABLET (FP) PO SCH (22:26)
[2017-02-11] MEDS: diphenhydrAMINE HCL 50 MG CAPSULE PO PRN (22:26)
[2017-02-12] MEDS: chlordiazePOXIDE HCL 10 MG CAPSULE PO SCH ×3 (05:24→18:00)
[2017-02-12] MEDS ORDERED: METHADONE HCL 10 MG TABLET (FOR DETOX USE ONLY) PO SCH (10:00)
[2017-02-12] MEDS: RITONAVIR 100 MG TABLET PO SCH (10:23)
[2017-02-12] MEDS: PRENATAL VITAMINS W/ FOLIC ACID TABLET (FP) PO SCH (10:23)
[2017-02-12] MEDS: ATAZANAVIR SO4 300 MG CAPSULE PO SCH (10:23)
[2017-02-12] MEDS: EMTRICITABINE 200MG/TENOFOVIR 300MG PO SCH (10:24)
--- NOTE | 2017-02-12 10:24 | PN ---
BHS Progress Note (SOAP) Subjective: anxiety sweats Objective: 02/12/17 10:15 Vital Signs Temperature 98.1 F 02/12/17 09:59 Pulse Rate 63 02/12/17 09:59 Respiratory Rate 18 02/12/17 09:59 Blood Pressure 125/62 02/12/17 09:59 O2 Sat by Pulse Oximetry (%) awake/alert ambulating no acute distress Assessment: 02/12/17 10:15 withdrawal sx Plan: continue detox d/c in am
[2017-02-12] MEDS: THIAMINE HCL 100 MG TABLET (FP) PO SCH (22:23)
[2017-02-12] MEDS: diphenhydrAMINE HCL 50 MG CAPSULE PO PRN (22:23)
[2017-02-13] MEDS ORDERED: METHADONE HCL 5 MG TABLET (FOR DETOX USE ONLY) PO SCH (06:00)
[2017-02-13 06:22] VITALS: BP 104/59; PULSE 46; TEMP 97.5
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
[2017-02-13] MEDS: ATAZANAVIR SO4 300 MG CAPSULE PO SCH (09:13)
[2017-02-13] MEDS: EMTRICITABINE 200MG/TENOFOVIR 300MG PO SCH (09:13)
[2017-02-13] MEDS: PRENATAL VITAMINS W/ FOLIC ACID TABLET (FP) PO SCH (09:14)
[2017-02-13] MEDS: RITONAVIR 100 MG TABLET PO SCH (09:15)
== END 2017-02-13 09:05 | disposition home or self-care (01) | DRG 773 ==
LOC: YASAS 13:08 → Y3N 18:16 → Y6N 02-11 11:29
PROVIDERS: ADMIT Internal Medicine; ATTEND Internal Medicine
PROC: HZ2ZZZZ Detoxification Services for Substance Abuse Treatment (ICD-10-PCS; principal; 2017-02-08)
DX: F11.23 Opioid dependence with withdrawal (principal); F10.230 Alcohol dependence with withdrawal, uncomplicated; F14.20 Cocaine dependence, uncomplicated; F17.210 Nicotine dependence, cigarettes, uncomplicated; F25.9 Schizoaffective disorder, unspecified; F31.9 Bipolar disorder, unspecified; B18.2 Chronic viral hepatitis C; Z21 Asymptomatic human immunodeficiency virus [HIV] infection status; Z87.898 Personal history of other specified conditions
CPT/HCPCS: 36415; 80053; 81003; 85027; 86593; 93005; 93010

== ENCOUNTER 2017-05-23 12:15 | Inpatient (IN) | payer OTHER ==
[2017-05-23 15:19] VITALS: BMI 22.1
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
[2017-05-23] MEDS ORDERED: MAG HYDROX/AL HYDROX/SIMETH 30 ML UNIT-DOSE CUP PO PRN (16:26)
[2017-05-23] MEDS ORDERED: P-EPHED 60MG/TRIPROLIDI 2.5MG TABLET PO PRN (16:26)
[2017-05-23] MEDS ORDERED: ACETAMINOPHEN 325 MG TABLET (FP) PO PRN (16:26)
[2017-05-23] MEDS ORDERED: IBUPROFEN 400 MG TABLET (FP) PO PRN (16:26)
[2017-05-23] MEDS ORDERED: MAGNESIUM HYDROX 2400MG/30ML ORAL SUSPENSION 30 ML CUP PO PRN (16:26)
[2017-05-23] MEDS ORDERED: MENTHOL/PHENOL 1 EACH UD MM PRN (16:26)
[2017-05-23] MEDS ORDERED: MAGNESIUM CITRATE 300 ML BOTTLE PO PRN (16:26)
[2017-05-23] MEDS ORDERED: NICOTINE POLACRILEX 2 MG GUM BC PRN (16:26)
[2017-05-23] MEDS ORDERED: chlordiazePOXIDE HCL 25 MG CAPSULE PO PRN (16:26)
[2017-05-23] MEDS ORDERED: guaiFENesin/D-METHORPHAN HB 10 ML UNIT-DOSE CUPS PO PRN (16:26)
[2017-05-23] MEDS ORDERED: LOPERAMIDE HCL 2 MG CAPSULE PO PRN (16:26)
[2017-05-23] MEDS ORDERED: METHADONE HCL 10 MG TABLET (FOR DETOX USE ONLY) PO ONE ×2 (19:30→23:00)
[2017-05-23] MEDS: chlordiazePOXIDE HCL 25 MG CAPSULE PO SCH (22:11)
[2017-05-23] MEDS: THIAMINE HCL 100 MG TABLET (FP) PO SCH (22:11)
[2017-05-23 22:33] LABS: URINE APPEARANCE SLCLOUDY; URINE BILIRUBIN NEGATIVE (NEGATIVE); URINE BLOOD NEGATIVE (NEGATIVE); URINE COLOR AMBER; URINE GLUCOSE (UA) NEGATIVE (NEGATIVE); URINE KETONE TRACE (NEGATIVE); URINE NITRITE NEGATIVE (NEGATIVE); URINE PROTEIN 1+ (NEGATIVE); URINE UROBILINOGEN NEGATIVE mg/dL (0.2-1.0)
[2017-05-23 22:44] LABS: URINE MUCUS FEW; URINE RBC 1; URINE WBC 1
[2017-05-24] MEDS: chlordiazePOXIDE HCL 25 MG CAPSULE PO SCH ×4 (05:26→22:21)
[2017-05-24] MEDS ORDERED: METHADONE HCL 10 MG TABLET (FOR DETOX USE ONLY) PO SCH (10:00)
[2017-05-24] MEDS: NICOTINE 14 MG/24 HOURS TOPICAL PATCH TD SCH (10:02)
[2017-05-24] MEDS: PRENATAL VITAMINS W/ FOLIC ACID TABLET (FP) PO SCH (10:02)
[2017-05-24 10:21] LABS: MCH 28.8 pg (25.7-33.7); MCHC 32.8 g/dl (32.0-35.9); MEAN CELL VOLUME 87.8 fl (80-96); MEAN PLT VOLUME 8.3 fl (7.5-11.1); PLATELET COUNT 257 K/MM3 (134-434); RDW 14.1 % (11.9-15.9); WHITE BLOOD COUNT 6.9 K/mm3 (4.0-10.0)
[2017-05-24 10:35] LABS: URINE LEUK ESTERASE Negative (NEGATIVE)
[2017-05-24 11:03] LABS: ALBUMIN 2.9 g/dl (3.4-5.0); ALK PHOS 64 U/L (45-117); ANION GAP 7 (8-16); BILIRUBIN,TOTAL 0.4 mg/dL (0.2-1.0); CALCIUM 8.2 mg/dL (8.5-10.1); CO2 28 mmol/L (21-32); CREATININE 0.9 mg/dL (0.7-1.3); GLUCOSE,RANDOM 89 mg/dL (74-106); SGOT/AST 27 U/L (15-37); SGPT/ALT 36 U/L (12-78); TOT PROT 7.7 g/dl (6.4-8.2)
--- NOTE | 2017-05-24 12:37 | EKG ---
Test Reason : Blood Pressure : / mmHG Vent. Rate : 061 BPM Atrial Rate : 061 BPM P-R Int : 166 ms QRS Dur : 106 ms QT Int : 448 ms P-R-T Axes : 062 095 066 degrees QTc Int : 450 ms NORMAL SINUS RHYTHM RIGHTWARD AXIS BORDERLINE ECG WHEN COMPARED WITH ECG OF 08-FEB-2017 18:52, NO SIGNIFICANT CHANGE WAS FOUND Confirmed by TRENT ALATORRE MD ([id number]) on 05/24/2017 12:37:20 PM Referred By: Confirmed By:TRENT ALATORRE MD
--- NOTE | 2017-05-24 17:29 | PN ---
S CIWA - CIWA Score Nausea/Vomitin Muscle Tremors: None Anxiety: 3 Agitation: 3 Paroxysmal Sweats: 3 Orientation: 0-Oriented Tacttile Disturbances: 2-Mild Itch/Numbness/Burn Auditory Disturbances: 0-None Visual Disturbances: 1-Very Mild Sensitivity Headache: 4-Moderately Severe CIWA-Ar Total Score: 21 BHS COWS - Scale Resting Pulse: 0= [place] 80 or Below Sweatin= Chills/Flushing Restless Observation: 1= Difficult to Sit Still Pupil Size: 0= Normal to Room Light Bone or Joint Aches: 1= Mild Discomfort Runny Nose/ Eye Tearin= None GI Upset > 30mins: 3= Vomiting/Diarrhea Tremor Observation of Outstretched Hands: 2= Slight Tremor Visible Yawning Observation: 1= 1-2x During Session Anxiety or Irritability: 2=Irritable/Anxious Goose Flesh Skin: 3=Piloerection COWS Score: 14 BHS Progress Note (SOAP) Subjective: Interrupted Sleep, Stomach Cramping, Body Aches, Vomiting, H/A, Sweating. Objective: PT. A & O X 3. NO ACUTE DISTRESS. 05/24/17 17:27 Vital Signs Temperature 98.2 F 05/24/17 17:07 Pulse Rate 60 05/24/17 17:07 Respiratory Rate 19 05/24/17 17:07 Blood Pressure 116/60 05/24/17 17:07 O2 Sat by Pulse Oximetry (%) Laboratory Tests 05/23/17 05/24/17 05/24/17 19:12 04:00 04:00 WBC 6.9 D RBC 4.49 Hgb 12.9 Hct 39.4 MCV 87.8 MCH 28.8 MCHC 32.8 RDW 14.1 Plt Count 257 D MPV 8.3 Sodium 139 Potassium 4.3 Chloride 104 Carbon Dioxide 28 Anion Gap 7 L BUN 16 D Creatinine 0.9 Creat Clearance w eGFR > 60 Random Glucose 89 Calcium 8.2 L Total Bilirubin 0.4 D AST 27 D ALT 36 Alkaline Phosphatase 64 Total Protein 7.7 Albumin 2.9 L Urine Color Lori Urine Appearance Slcloudy Urine pH 6.0 Ur Specific [place] 1.026 Urine Protein 1+ H Urine Glucose (UA) Negative Urine Ketones Trace H Urine Blood Negative Urine Nitrite Negative Urine Bilirubin Negative Urine Urobilinogen Negative Ur Leukocyte Esterase Negative Urine WBC (Auto) 1 Urine RBC (Auto) 1 Ur Epithelial Cells Rare Urine Mucus Few RPR Titer 05/24/17 04:00 WBC RBC Hgb Hct MCV MCH MCHC RDW Plt Count MPV Sodium Potassium Chloride Carbon Dioxide Anion Gap BUN Creatinine Creat Clearance w eGFR Random Glucose Calcium Total Bilirubin AST ALT Alkaline Phosphatase Total Protein Albumin Urine Color Urine Appearance Urine pH Ur Specific [place] Urine Protein Urine Glucose (UA) Urine Ketones Urine Blood Urine Nitrite Urine Bilirubin Urine Urobilinogen Ur Leukocyte Esterase Urine WBC (Auto) Urine RBC (Auto) Ur Epithelial Cells Urine Mucus RPR Titer Nonreactive LABS NOTED. Assessment: 05/24/17 17:28 WITHDRAWAL SYMPTOMS. Plan: CONTINUE DETOX.
[2017-05-24] MEDS: THIAMINE HCL 100 MG TABLET (FP) PO SCH (22:21)
[2017-05-25] MEDS: chlordiazePOXIDE HCL 25 MG CAPSULE PO SCH ×3 (05:35→17:19)
[2017-05-25] MEDS: NICOTINE 14 MG/24 HOURS TOPICAL PATCH TD SCH (10:10)
[2017-05-25] MEDS: METHADONE HCL 5 MG TABLET (FOR DETOX USE ONLY) PO SCH (10:10)
[2017-05-25] MEDS: PRENATAL VITAMINS W/ FOLIC ACID TABLET (FP) PO SCH (10:10)
--- NOTE | 2017-05-25 14:53 | PN ---
S CIWA - CIWA Score Nausea/Vomitin Muscle Tremors: 4-Moderate,w/Arms Extend Anxiety: 3 Agitation: 3 Paroxysmal Sweats: 3 Orientation: 0-Oriented Tacttile Disturbances: 2-Mild Itch/Numbness/Burn Auditory Disturbances: 0-None Visual Disturbances: 2-Mild Sensitivity Headache: 0-None Present CIWA-Ar Total Score: 20 BHS COWS - Scale Resting Pulse: 0= [place] 80 or Below Sweatin= Chills/Flushing Restless Observation: 1= Difficult to Sit Still Pupil Size: 0= Normal to Room Light Bone or Joint Aches: 2= Severe Diffuse Aches Runny Nose/ Eye Tearin= None GI Upset > 30mins: 2= Nausea/Diarrhea Tremor Observation of Outstretched Hands: 0= None Yawning Observation: 1= 1-2x During Session Anxiety or Irritability: 2=Irritable/Anxious Goose Flesh Skin: 3=Piloerection COWS Score: 12 S Progress Note (SOAP) Subjective: Vomiting, Diarrhea, Interrupted sleep, Sweating. Objective: PT. A & O X 3, OBSERVED AMBULATING ON UNIT. NO ACUTE DISTRESS. 05/25/17 14:51 Vital Signs Temperature 97.7 F 05/25/17 13:42 Pulse Rate 60 05/25/17 13:42 Respiratory Rate 20 05/25/17 13:42 Blood Pressure 124/79 05/25/17 13:42 O2 Sat by Pulse Oximetry (%) Laboratory Tests 05/23/17 05/24/17 05/24/17 19:12 04:00 04:00 WBC 6.9 D RBC 4.49 Hgb 12.9 Hct 39.4 MCV 87.8 MCH 28.8 MCHC 32.8 RDW 14.1 Plt Count 257 D MPV 8.3 Sodium 139 Potassium 4.3 Chloride 104 Carbon Dioxide 28 Anion Gap 7 L BUN 16 D Creatinine 0.9 Creat Clearance w eGFR > 60 Random Glucose 89 Calcium 8.2 L Total Bilirubin 0.4 D AST 27 D ALT 36 Alkaline Phosphatase 64 Total Protein 7.7 Albumin 2.9 L Urine Color Lori Urine Appearance Slcloudy Urine pH 6.0 Ur Specific [place] 1.026 Urine Protein 1+ H Urine Glucose (UA) Negative Urine Ketones Trace H Urine Blood Negative Urine Nitrite Negative Urine Bilirubin Negative Urine Urobilinogen Negative Ur Leukocyte Esterase Negative Urine WBC (Auto) 1 Urine RBC (Auto) 1 Ur Epithelial Cells Rare Urine Mucus Few RPR Titer 05/24/17 04:00 WBC RBC Hgb Hct MCV MCH MCHC RDW Plt Count MPV Sodium Potassium Chloride Carbon Dioxide Anion Gap BUN Creatinine Creat Clearance w eGFR Random Glucose Calcium Total Bilirubin AST ALT Alkaline Phosphatase Total Protein Albumin Urine Color Urine Appearance Urine pH Ur Specific [place] Urine Protein Urine Glucose (UA) Urine Ketones Urine Blood Urine Nitrite Urine Bilirubin Urine Urobilinogen Ur Leukocyte Esterase Urine WBC (Auto) Urine RBC (Auto) Ur Epithelial Cells Urine Mucus RPR Titer Nonreactive LABS NOTED. Assessment: 05/25/17 14:51 WITHDRAWAL SYMPTOMS. Plan: CONTINUE DETOX.
[2017-05-25] MEDS: hydrOXYzine PAMOATE 50 MG CAPSULE (FP) PO PRN (22:16)
[2017-05-25] MEDS: THIAMINE HCL 100 MG TABLET (FP) PO SCH (22:16)
[2017-05-25] MEDS: chlordiazePOXIDE 5 MG CAPSULE PO SCH (22:17)
[2017-05-26] MEDS: chlordiazePOXIDE 5 MG CAPSULE PO SCH ×3 (05:47→18:42)
[2017-05-26] MEDS: PRENATAL VITAMINS W/ FOLIC ACID TABLET (FP) PO SCH (11:15)
[2017-05-26] MEDS: METHADONE HCL 5 MG TABLET (FOR DETOX USE ONLY) PO SCH (11:15)
[2017-05-26] MEDS: NICOTINE 14 MG/24 HOURS TOPICAL PATCH TD SCH (11:15)
--- NOTE | 2017-05-26 14:59 | PN ---
BHS Progress Note (SOAP) Subjective: Stomach Cramping, Interrupted Sleep, Diarrhea, H/A, Fatigue. Objective: PT. A & O X 3, OBSERVED AMBULATING ON UNIT. NO ACUTE DISTRESS. 05/26/17 14:57 Vital Signs Temperature 98.3 F 05/26/17 14:34 Pulse Rate 77 05/26/17 14:34 Respiratory Rate 18 05/26/17 14:34 Blood Pressure 115/77 05/26/17 14:34 O2 Sat by Pulse Oximetry (%) Laboratory Tests 05/23/17 05/24/17 05/24/17 19:12 04:00 04:00 WBC 6.9 D RBC 4.49 Hgb 12.9 Hct 39.4 MCV 87.8 MCH 28.8 MCHC 32.8 RDW 14.1 Plt Count 257 D MPV 8.3 Sodium 139 Potassium 4.3 Chloride 104 Carbon Dioxide 28 Anion Gap 7 L BUN 16 D Creatinine 0.9 Creat Clearance w eGFR > 60 Random Glucose 89 Calcium 8.2 L Total Bilirubin 0.4 D AST 27 D ALT 36 Alkaline Phosphatase 64 Total Protein 7.7 Albumin 2.9 L Urine Color Lori Urine Appearance Slcloudy Urine pH 6.0 Ur Specific [place] 1.026 Urine Protein 1+ H Urine Glucose (UA) Negative Urine Ketones Trace H Urine Blood Negative Urine Nitrite Negative Urine Bilirubin Negative Urine Urobilinogen Negative Ur Leukocyte Esterase Negative Urine WBC (Auto) 1 Urine RBC (Auto) 1 Ur Epithelial Cells Rare Urine Mucus Few RPR Titer 05/24/17 04:00 WBC RBC Hgb Hct MCV MCH MCHC RDW Plt Count MPV Sodium Potassium Chloride Carbon Dioxide Anion Gap BUN Creatinine Creat Clearance w eGFR Random Glucose Calcium Total Bilirubin AST ALT Alkaline Phosphatase Total Protein Albumin Urine Color Urine Appearance Urine pH Ur Specific [place] Urine Protein Urine Glucose (UA) Urine Ketones Urine Blood Urine Nitrite Urine Bilirubin Urine Urobilinogen Ur Leukocyte Esterase Urine WBC (Auto) Urine RBC (Auto) Ur Epithelial Cells Urine Mucus RPR Titer Nonreactive LABS NOTED. Assessment: 05/26/17 14:57 WITHDRAWAL SYMPTOMS. Plan: CONTINUE DETOX. PRN IMMODIUM FOR DIARRHEA. INCREASE DAILY PO FLUID INTAKE.
[2017-05-26] MEDS: THIAMINE HCL 100 MG TABLET (FP) PO SCH (22:05)
[2017-05-26] MEDS: chlordiazePOXIDE HCL 10 MG CAPSULE PO SCH (22:05)
[2017-05-26] MEDS: hydrOXYzine PAMOATE 50 MG CAPSULE (FP) PO PRN (22:05)
[2017-05-27] MEDS: chlordiazePOXIDE HCL 10 MG CAPSULE PO SCH ×2 (06:37→10:34)
[2017-05-27 09:53] VITALS: BP 131/75; PULSE 85; TEMP 97
[2017-05-27] MEDS ORDERED: METHADONE HCL 10 MG TABLET (FOR DETOX USE ONLY) PO SCH (10:00)
[2017-05-27] MEDS: PRENATAL VITAMINS W/ FOLIC ACID TABLET (FP) PO SCH (10:34)
[2017-05-27] MEDS: NICOTINE 14 MG/24 HOURS TOPICAL PATCH TD SCH (10:34)
--- NOTE | 2017-05-27 16:12 | DS ---
[facility] Detox Discharge Summary Admission Date: 05/23/17 Discharge Date: 05/27/17 - History Present History: Alcohol Dependence, Opioid Dependence Pertinent Past History: Hepatitis C HIV - Physical Exam Results Vital Signs: Vital Signs Temperature 97 F L 05/27/17 09:51 Pulse Rate 85 05/27/17 09:51 Respiratory Rate 18 05/27/17 09:51 Blood Pressure 131/75 05/27/17 09:51 O2 Sat by Pulse Oximetry (%) Pertinent Admission Physical Exam Findings: Withdrawal symptoms Laboratory Tests 05/23/17 05/24/17 05/24/17 19:12 04:00 04:00 WBC 6.9 D RBC 4.49 Hgb 12.9 Hct 39.4 MCV 87.8 MCH 28.8 MCHC 32.8 RDW 14.1 Plt Count 257 D MPV 8.3 Sodium 139 Potassium 4.3 Chloride 104 Carbon Dioxide 28 Anion Gap 7 L BUN 16 D Creatinine 0.9 Creat Clearance w eGFR > 60 Random Glucose 89 Calcium 8.2 L Total Bilirubin 0.4 D AST 27 D ALT 36 Alkaline Phosphatase 64 Total Protein 7.7 Albumin 2.9 L Urine Color Lori Urine Appearance Slcloudy Urine pH 6.0 Ur Specific [place] 1.026 Urine Protein 1+ H Urine Glucose (UA) Negative Urine Ketones Trace H Urine Blood Negative Urine Nitrite Negative Urine Bilirubin Negative Urine Urobilinogen Negative Ur Leukocyte Esterase Negative Urine WBC (Auto) 1 Urine RBC (Auto) 1 Ur Epithelial Cells Rare Urine Mucus Few RPR Titer 05/24/17 04:00 WBC RBC Hgb Hct MCV MCH MCHC RDW Plt Count MPV Sodium Potassium Chloride Carbon Dioxide Anion Gap BUN Creatinine Creat Clearance w eGFR Random Glucose Calcium Total Bilirubin AST ALT Alkaline Phosphatase Total Protein Albumin Urine Color Urine Appearance Urine pH Ur Specific [place] Urine Protein Urine Glucose (UA) Urine Ketones Urine Blood Urine Nitrite Urine Bilirubin Urine Urobilinogen Ur Leukocyte Esterase Urine WBC (Auto) Urine RBC (Auto) Ur Epithelial Cells Urine Mucus RPR Titer Nonreactive Labs noted: UA shows proteinuria - Medication Discharge Medications: Ambulatory Orders Atazanavir [Reyataz -] 400 mg PO DAILY 11/22/16 Emtricitabine/Tenofovir (Tdf) [Truvada 200 mg-300 mg Tablet] 1 each PO DAILY Ritonavir [Norvir -] 100 mg PO DAILY 11/22/16 - Diagnosis (1) Opioid dependence with intoxication, uncomplicated Status: Acute (2) Alcohol dependence with uncomplicated withdrawal Status: Acute (3) Nicotine dependence Status: Chronic Qualifiers: Nicotine product type: cigarettes Substance use status: in withdrawal Qualified Code(s): F17.213 - Nicotine dependence, cigarettes, with withdrawal (4) Human immunodeficiency virus infection Status: Chronic - AMA Did Patient Leave Against Medical Advice: Yes (F/U with PCP in 1-2 weeks)
[2017-05-28] MEDS ORDERED: METHADONE HCL 5 MG TABLET (FOR DETOX USE ONLY) PO SCH (06:00)
== END 2017-05-27 14:30 | disposition left against medical advice (07) | DRG 770 ==
LOC: YASAS 12:15 → Y3N 18:05
PROVIDERS: ADMIT Internal Medicine; ATTEND Internal Medicine
PROC: HZ2ZZZZ Detoxification Services for Substance Abuse Treatment (ICD-10-PCS; principal; 2017-05-23)
DX: F11.23 Opioid dependence with withdrawal (principal); F10.230 Alcohol dependence with withdrawal, uncomplicated; F14.20 Cocaine dependence, uncomplicated; F17.210 Nicotine dependence, cigarettes, uncomplicated; Z21 Asymptomatic human immunodeficiency virus [HIV] infection status; B18.2 Chronic viral hepatitis C; Z87.828 Personal history of other (healed) physical injury and trauma
CPT/HCPCS: 36415; 80053; 81003; 81015; 85027; 86593; 93005; 93010

== ENCOUNTER 2018-06-27 13:20 | Inpatient (IN) | payer OTHER ==
[2018-06-27 13:24] VITALS: BMI 24.1
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
[2018-06-27] MEDS ORDERED: ACETAMINOPHEN 325 MG TABLET (FP) PO PRN (16:43)
[2018-06-27] MEDS ORDERED: MENTHOL/PHENOL 1 EACH UD MM PRN (16:43)
[2018-06-27] MEDS ORDERED: P-EPHED 60MG/TRIPROLIDI 2.5MG TABLET PO PRN (16:43)
[2018-06-27] MEDS ORDERED: MAG HYDROX/AL HYDROX/SIMETH 30 ML UNIT-DOSE CUP PO PRN (16:43)
[2018-06-27] MEDS ORDERED: MAGNESIUM CITRATE 300 ML BOTTLE PO PRN (16:43)
[2018-06-27] MEDS ORDERED: NICOTINE POLACRILEX 2 MG GUM BUC PRN (16:43)
[2018-06-27] MEDS ORDERED: guaiFENesin/D-METHORPHAN HB 10 ML UNIT-DOSE CUPS PO PRN (16:43)
[2018-06-27] MEDS ORDERED: IBUPROFEN 400 MG TABLET (FP) PO PRN (16:43)
[2018-06-27] MEDS ORDERED: MAGNESIUM HYDROX 2400MG/30ML ORAL SUSPENSION 30 ML CUP PO PRN (16:43)
[2018-06-27] MEDS: diazePAM 5 MG TABLET PO PRN (18:49)
[2018-06-27] MEDS: THIAMINE HCL 100 MG TABLET (FP) PO SCH (22:28)
[2018-06-27] MEDS: CLINDAMYCIN HCL 150 MG CAPSULE (FP) PO SCH (22:28)
[2018-06-27] MEDS: diazePAM 5 MG TABLET PO SCH (22:29)
[2018-06-27] MEDS: MELATONIN 5 MG TABLETS PO PRN (22:31)
[2018-06-27] MEDS ORDERED: METHADONE HCL 10 MG TABLET (FOR DETOX USE ONLY) PO ONE (23:00)
[2018-06-28] MEDS: CLINDAMYCIN HCL 150 MG CAPSULE (FP) PO SCH ×3 (05:39→22:24)
[2018-06-28] MEDS: diazePAM 5 MG TABLET PO SCH ×3 (05:39→22:24)
[2018-06-28] MEDS ORDERED: METHADONE HCL 10 MG TABLET (FOR DETOX USE ONLY) PO SCH (10:00)
[2018-06-28] MEDS: RITONAVIR 100 MG TABLET PO SCH (10:06)
[2018-06-28] MEDS: ATAZANAVIR SO4 300 MG CAPSULE PO SCH (10:06)
[2018-06-28] MEDS: PRENATAL VITAMINS W/ FOLIC ACID TABLET (FP) PO SCH (10:06)
[2018-06-28] MEDS: EMTRICITABINE 200MG/TENOFOVIR 300MG PO SCH (10:07)
--- NOTE | 2018-06-28 10:14 | PN ---
[facility] CIWA - CIWA Score Nausea/Vomitin-Mild Nausea/No Vomiting Muscle Tremors: 1-None Visible, but [place] Anxiety: 1-Mildly Anxious Agitation: 1-Slight > Activity Paroxysmal Sweats: 3 Orientation: 0-Oriented Tacttile Disturbances: 2-Mild Itch/Numbness/Burn Auditory Disturbances: 0-None Visual Disturbances: 0-None Headache: 0-None Present CIWA-Ar Total Score: 9 S COWS - Scale Resting Pulse: 0= [place] 80 or Below Sweatin=Flushed/Facial Moisture Restless Observation: 1= Difficult to Sit Still Pupil Size: 1= Pupils >than Normal Bone or Joint Aches: 2= Severe Diffuse Aches Runny Nose/ Eye Tearin= Runny Nose/Eyes GI Upset > 30mins: 1= Stomach Cramp Tremor Observation of Outstretched Hands: 1= Tremor [place], Not Seen Yawning Observation: 0= None Anxiety or Irritability: 1=Feels Anxious/Irritable Goose Flesh Skin: 0=Smooth Skin COWS Score: 11 [facility] Progress Note (SOAP) Subjective: interrupted sleep, sweats, shakes runny nose, leg pains Objective: 06/28/18 10:11 Vital Signs Temperature 98.2 F 06/28/18 09:00 Pulse Rate 51 L 06/28/18 09:00 Respiratory Rate 18 06/28/18 09:00 Blood Pressure 145/73 06/28/18 09:00 O2 Sat by Pulse Oximetry (%) pending labs 06/28/18 10:11 pt aox3 sitting up in bed ,restless runny nose, Assessment: 06/28/18 10:12 withdrawal sx's Plan: cont. detox ' increase fluids f/up pending labs prn valium
[2018-06-28 10:46] LABS: HEMATOCRIT 35.2 % (35.4-49); HEMOGLOBIN 11.2 GM/dL (11.7-16.9); MCH 27.7 pg (25.7-33.7); MCHC 31.7 g/dl (32.0-35.9); MEAN CELL VOLUME 87.6 fl (80-96); MEAN PLT VOLUME 8.1 fl (7.5-11.1); PLATELET COUNT 253 K/MM3 (134-434); RBC 4.02 M/mm3 (4.00-5.60); RDW 14.8 % (11.9-15.9); WHITE BLOOD COUNT 4.2 K/mm3 (4.0-10.0)
[2018-06-28 11:01] LABS: ALBUMIN 2.7 g/dl (3.4-5.0); ALK PHOS 73 U/L (45-117); ANION GAP 6 MMOL/L (8-16); BILIRUBIN,TOTAL 0.2 mg/dL (0.2-1); BLOOD UREA NITROGEN 16 mg/dL (7-18); CALCIUM 8.7 mg/dL (8.5-10.1); CHLORIDE 98 mmol/L (98-107); CO2 31 mmol/L (21-32); CREATININE 0.7 mg/dL (0.55-1.3); GLUCOSE,RANDOM 89 mg/dL (74-106); SGOT/AST 39 U/L (15-37); SGPT/ALT 37 U/L (13-61); SODIUM 135 mmol/L (136-145); TOT PROT 8.1 g/dl (6.4-8.2)
[2018-06-28] MEDS: MELATONIN 5 MG TABLETS PO PRN (22:24)
[2018-06-28] MEDS: THIAMINE HCL 100 MG TABLET (FP) PO SCH (22:24)
[2018-06-29] MEDS: CLINDAMYCIN HCL 150 MG CAPSULE (FP) PO SCH ×3 (05:09→22:03)
[2018-06-29] MEDS ORDERED: METHADONE HCL 5 MG TABLET (FOR DETOX USE ONLY) PO SCH (10:00)
[2018-06-29] MEDS: RITONAVIR 100 MG TABLET PO SCH (10:13)
[2018-06-29] MEDS: PRENATAL VITAMINS W/ FOLIC ACID TABLET (FP) PO SCH (10:13)
[2018-06-29] MEDS: ATAZANAVIR SO4 300 MG CAPSULE PO SCH (10:13)
[2018-06-29] MEDS: EMTRICITABINE 200MG/TENOFOVIR 300MG PO SCH (10:13)
[2018-06-29] MEDS: diazePAM 5 MG TABLET PO SCH ×2 (10:13→22:03)
--- NOTE | 2018-06-29 11:23 | PN ---
[facility] CIWA - CIWA Score Nausea/Vomitin-No Nausea/No Vomiting Muscle Tremors: 3 Anxiety: 2 Agitation: 2 Paroxysmal Sweats: 3 Orientation: 0-Oriented Tacttile Disturbances: 0-None Auditory Disturbances: 0-None Visual Disturbances: 0-None Headache: 0-None Present CIWA-Ar Total Score: 10 S COWS - Scale Resting Pulse: 0= [place] 80 or Below Sweatin=Flushed/Facial Moisture Restless Observation: 1= Difficult to Sit Still Pupil Size: 0= Normal to Room Light Bone or Joint Aches: 1= Mild Discomfort Runny Nose/ Eye Tearin= None GI Upset > 30mins: 0= None Tremor Observation of Outstretched Hands: 1= Tremor [place], Not Seen Yawning Observation: 1= 1-2x During Session Anxiety or Irritability: 1=Feels Anxious/Irritable Goose Flesh Skin: 3=Piloerection COWS Score: 10 [facility] Progress Note (SOAP) Subjective: sweats eight foot pain interrupted sleep anxiety Objective: 06/29/18 11:22 Vital Signs Temperature 99.3 F 06/29/18 09:28 Pulse Rate 57 L 06/29/18 09:28 Respiratory Rate 18 06/29/18 09:28 Blood Pressure 142/71 06/29/18 09:28 O2 Sat by Pulse Oximetry (%) Laboratory Tests 06/28/18 06/28/18 06/28/18 07:00 07:00 07:00 WBC 4.2 RBC 4.02 Hgb 11.2 L Hct 35.2 L MCV 87.6 MCH 27.7 MCHC 31.7 L RDW 14.8 Plt Count 253 MPV 8.1 Sodium 135 L Potassium 4.0 Chloride 98 Carbon Dioxide 31 Anion Gap 6 L BUN 16 Creatinine 0.7 Creat Clearance w eGFR > 60 Random Glucose 89 Calcium 8.7 Total Bilirubin 0.2 AST 39 H ALT 37 Alkaline Phosphatase 73 Total Protein 8.1 Albumin 2.7 L RPR Titer Nonreactive aaox3 ambulating no acute distress Assessment: 06/29/18 11:23 withdrawal sx Plan: continue detox increase fluids analgesic balm motrin 600mg prn
[2018-06-29] MEDS: METHYL SALICYLATE/MENTHOL OINT 30 GM TUBE TP SCH ×2 (14:33→22:07)
[2018-06-29] MEDS: diazePAM 5 MG TABLET PO PRN (14:35)
[2018-06-29] MEDS: THIAMINE HCL 100 MG TABLET (FP) PO SCH (22:03)
[2018-06-29] MEDS: IBUPROFEN 400 MG TABLET (FP) PO PRN (22:51)
[2018-06-30] MEDS: CLINDAMYCIN HCL 150 MG CAPSULE (FP) PO SCH ×3 (06:55→22:04)
[2018-06-30] MEDS ORDERED: METHADONE HCL 10 MG TABLET (FOR DETOX USE ONLY) PO SCH (10:00)
[2018-06-30] MEDS: diazePAM 5 MG TABLET PO SCH ×2 (10:04→22:04)
[2018-06-30] MEDS: EMTRICITABINE 200MG/TENOFOVIR 300MG PO SCH (10:04)
[2018-06-30] MEDS: METHYL SALICYLATE/MENTHOL OINT 30 GM TUBE TP SCH ×2 (10:04→22:05)
[2018-06-30] MEDS: RITONAVIR 100 MG TABLET PO SCH (10:04)
[2018-06-30] MEDS: ATAZANAVIR SO4 300 MG CAPSULE PO SCH (10:04)
[2018-06-30] MEDS: PRENATAL VITAMINS W/ FOLIC ACID TABLET (FP) PO SCH (10:04)
[2018-06-30] MEDS: IBUPROFEN 400 MG TABLET (FP) PO PRN ×2 (10:05→16:17)
--- NOTE | 2018-06-30 10:32 | PN ---
[facility] Progress Note (SOAP) Subjective: feeling better today social with peers in day room and ya way no tremor no body aches less sweat sleep better at night Objective: 06/30/18 10:30 Vital Signs Temperature 98.1 F 06/30/18 09:14 Pulse Rate 57 L 06/30/18 09:14 Respiratory Rate 18 06/30/18 09:14 Blood Pressure 143/67 06/30/18 09:14 O2 Sat by Pulse Oximetry (%) Laboratory Last Values WBC 4.2 K/mm3 (4.0-10.0) 06/28/18 07:00 RBC 4.02 M/mm3 (4.00-5.60) 06/28/18 07:00 Hgb 11.2 GM/dL (11.7-16.9) L 06/28/18 07:00 Hct 35.2 % (35.4-49) L 06/28/18 07:00 MCV 87.6 fl (80-96) 06/28/18 07:00 MCH 27.7 pg (25.7-33.7) 06/28/18 07:00 MCHC 31.7 g/dl (32.0-35.9) L 06/28/18 07:00 RDW 14.8 % (11.9-15.9) 06/28/18 07:00 Plt Count 253 K/MM3 (134-434) 06/28/18 07:00 MPV 8.1 fl (7.5-11.1) 06/28/18 07:00 Sodium 135 mmol/L (136-145) L 06/28/18 07:00 Potassium 4.0 mmol/L (3.5-5.1) 06/28/18 07:00 Chloride 98 mmol/L (98-107) 06/28/18 07:00 Carbon Dioxide 31 mmol/L (21-32) 06/28/18 07:00 Anion Gap 6 MMOL/L (8-16) L 06/28/18 07:00 BUN 16 mg/dL (7-18) 06/28/18 07:00 Creatinine 0.7 mg/dL (0.55-1.3) 06/28/18 07:00 Creat Clearance w eGFR > 60 (>60) 06/28/18 07:00 Random Glucose 89 mg/dL (74-106) 06/28/18 07:00 Calcium 8.7 mg/dL (8.5-10.1) 06/28/18 07:00 Total Bilirubin 0.2 mg/dL (0.2-1) 06/28/18 07:00 AST 39 U/L (15-37) H 06/28/18 07:00 ALT 37 U/L (13-61) 06/28/18 07:00 Alkaline Phosphatase 73 U/L (45-117) 06/28/18 07:00 Total Protein 8.1 g/dl (6.4-8.2) 06/28/18 07:00 Albumin 2.7 g/dl (3.4-5.0) L 06/28/18 07:00 RPR Titer Nonreactive (NONREACTIVE) 06/28/18 07:00 lab noted Assessment: 06/30/18 10:31 mild alcohol and opiate withdrawal sx hiv Plan: medically supervised detox discuss aftercare
[2018-06-30] MEDS ORDERED: IBUPROFEN 600 MG TABLET (FP) PO PRN (18:26)
[2018-06-30] MEDS: THIAMINE HCL 100 MG TABLET (FP) PO SCH (22:04)
[2018-07-01] MEDS ORDERED: METHADONE HCL 5 MG TABLET (FOR DETOX USE ONLY) PO SCH (06:00)
[2018-07-01] MEDS: CLINDAMYCIN HCL 150 MG CAPSULE (FP) PO SCH (06:35)
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
[2018-07-01 09:00] VITALS: BP 135/80; PULSE 73; TEMP 98.6
[2018-07-01] MEDS ORDERED: diazePAM 5 MG TABLET PO SCH (10:00)
[2018-07-01] MEDS: PRENATAL VITAMINS W/ FOLIC ACID TABLET (FP) PO SCH (10:09)
[2018-07-01] MEDS: ATAZANAVIR SO4 300 MG CAPSULE PO SCH (10:09)
[2018-07-01] MEDS: METHYL SALICYLATE/MENTHOL OINT 30 GM TUBE TP SCH (10:10)
[2018-07-01] MEDS: EMTRICITABINE 200MG/TENOFOVIR 300MG PO SCH (10:10)
[2018-07-01] MEDS: RITONAVIR 100 MG TABLET PO SCH (10:10)
== END 2018-07-01 10:35 | disposition home or self-care (01) | DRG 773 ==
LOC: YASAS 13:20 → Y6N 17:31
PROC: HZ2ZZZZ Detoxification Services for Substance Abuse Treatment (ICD-10-PCS; principal; 2018-06-27)
DX: F11.220 Opioid dependence with intoxication, uncomplicated (principal); F10.230 Alcohol dependence with withdrawal, uncomplicated; F14.20 Cocaine dependence, uncomplicated; F17.210 Nicotine dependence, cigarettes, uncomplicated; F25.9 Schizoaffective disorder, unspecified; F31.9 Bipolar disorder, unspecified; Z21 Asymptomatic human immunodeficiency virus [HIV] infection status; B18.2 Chronic viral hepatitis C; Z91.013 Allergy to seafood
CPT/HCPCS: 36415; 80053; 85027; 86593

== ENCOUNTER 2018-08-23 15:38 | Inpatient (IN) | payer OTHER ==
[2018-08-23 15:59] VITALS: BMI 22.3
[2018-08-23] MEDS ORDERED: MELATONIN 5 MG TABLETS PO PRN (22:00)
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
[2018-08-23] MEDS ORDERED: MAGNESIUM CITRATE 300 ML BOTTLE PO PRN (22:59)
[2018-08-23] MEDS ORDERED: guaiFENesin/D-METHORPHAN HB 10 ML UNIT-DOSE CUPS PO PRN (22:59)
[2018-08-23] MEDS ORDERED: MAG HYDROX/AL HYDROX/SIMETH 30 ML UNIT-DOSE CUP PO PRN (22:59)
[2018-08-23] MEDS ORDERED: ACETAMINOPHEN 325 MG TABLET (FP) PO PRN (22:59)
[2018-08-23] MEDS ORDERED: MENTHOL/PHENOL 1 EACH UD MM PRN (22:59)
[2018-08-23] MEDS ORDERED: IBUPROFEN 400 MG TABLET (FP) PO PRN (22:59)
[2018-08-23] MEDS ORDERED: LOPERAMIDE HCL 2 MG CAPSULE PO PRN (22:59)
[2018-08-23] MEDS ORDERED: P-EPHED 60MG/TRIPROLIDI 2.5MG TABLET PO PRN (22:59)
[2018-08-23] MEDS ORDERED: MAGNESIUM HYDROX 2400MG/30ML ORAL SUSPENSION 30 ML CUP PO PRN (22:59)
[2018-08-23] MEDS ORDERED: METHADONE HCL 10 MG TABLET (FOR DETOX USE ONLY) PO ONE ×2 (23:00→23:30)
[2018-08-24] MEDS: chlordiazePOXIDE HCL 25 MG CAPSULE PO SCH ×5 (00:37→22:23)
[2018-08-24] MEDS: chlordiazePOXIDE HCL 25 MG CAPSULE PO PRN (03:58)
[2018-08-24] MEDS ORDERED: METHADONE HCL 10 MG TABLET (FOR DETOX USE ONLY) PO SCH (10:00)
[2018-08-24] MEDS: PRENATAL VITAMINS W/ FOLIC ACID TABLET (FP) PO SCH (10:06)
[2018-08-24 11:22] LABS: ALBUMIN 3.1 g/dl (3.4-5.0); ALK PHOS 71 U/L (45-117); ANION GAP 5 MMOL/L (8-16); BILIRUBIN,TOTAL 0.2 mg/dL (0.2-1); BLOOD UREA NITROGEN 15 mg/dL (7-18); CALCIUM 8.5 mg/dL (8.5-10.1); CHLORIDE 102 mmol/L (98-107); CO2 29 mmol/L (21-32); CREATININE 0.8 mg/dL (0.55-1.3); GLUCOSE,RANDOM 89 mg/dL (74-106); POTASSIUM 3.7 mmol/L (3.5-5.1); SGOT/AST 36 U/L (15-37); SGPT/ALT 43 U/L (13-61); SODIUM 137 mmol/L (136-145); TOT PROT 8.2 g/dl (6.4-8.2)
[2018-08-24 11:36] LABS: HEMATOCRIT 36.2 % (35.4-49); HEMOGLOBIN 12.6 GM/dL (11.7-16.9); MCH 29.9 pg (25.7-33.7); MCHC 34.7 g/dl (32.0-35.9); MEAN CELL VOLUME 86.1 fl (80-96); MEAN PLT VOLUME 8.5 fl (7.5-11.1); PLATELET COUNT 246 K/MM3 (134-434); RDW 15.5 % (11.9-15.9); WHITE BLOOD COUNT 6.5 K/mm3 (4.0-10.0)
--- NOTE | 2018-08-24 14:39 | PN ---
[facility] CIWA - CIWA Score Nausea/Vomitin Muscle Tremors: 3 Anxiety: 2 Agitation: 0-Normal Activity Paroxysmal Sweats: No Perspiration Orientation: 0-Oriented Tacttile Disturbances: 0-None Auditory Disturbances: 2-Mild Harshness/Frighten Visual Disturbances: 1-Very Mild Sensitivity Headache: 3-Moderate CIWA-Ar Total Score: 14 [facility] COWS - Scale Resting Pulse: 0= [place] 80 or Below Sweatin= No chills or Flushing Restless Observation: 0= Sits Still Pupil Size: 0= Normal to Room Light Bone or Joint Aches: 2= Severe Diffuse Aches Runny Nose/ Eye Tearin= None GI Upset > 30mins: 2= Nausea/Diarrhea Tremor Observation of Outstretched Hands: 2= Slight Tremor Visible Yawning Observation: 1= 1-2x During Session Anxiety or Irritability: 2=Irritable/Anxious Goose Flesh Skin: 3=Piloerection COWS Score: 12 [facility] Progress Note (SOAP) Subjective: Diarrhea, Fatigue, Tremors, Interrupted Sleep, Body Aches, Nausea, H/A, Stomach Cramping. Objective: PATIENT A & O X 3, OBSERVED AMBULATING ON UNIT. IN NO ACUTE DISTRESS. 08/24/18 14:38 Vital Signs Temperature 98.3 F 08/24/18 09:29 Pulse Rate 75 08/24/18 09:29 Respiratory Rate 20 08/24/18 09:29 Blood Pressure 129/82 08/24/18 09:29 O2 Sat by Pulse Oximetry (%) Laboratory Tests 08/24/18 08/24/18 08/24/18 07:45 07:45 07:45 WBC 6.5 RBC 4.20 Hgb 12.6 Hct 36.2 MCV 86.1 MCH 29.9 MCHC 34.7 RDW 15.5 Plt Count 246 MPV 8.5 Sodium 137 Potassium 3.7 Chloride 102 Carbon Dioxide 29 Anion Gap 5 L BUN 15 Creatinine 0.8 Creat Clearance w eGFR > 60 Random Glucose 89 Calcium 8.5 Total Bilirubin 0.2 AST 36 ALT 43 Alkaline Phosphatase 71 Total Protein 8.2 Albumin 3.1 L RPR Titer Nonreactive LABS NOTED. Assessment: 08/24/18 14:39 WITHDRAWAL SYMPTOMS. Plan: CONTINUE DETOX. INCREASE DAILY PO FLUID INTAKE. PRN IMMODIUM FOR DIARRHEA. CONTINUE TO MONITOR BP.
[2018-08-24] MEDS ORDERED: THIAMINE HCL 100 MG TABLET (FP) PO SCH (22:00)
[2018-08-25] MEDS: chlordiazePOXIDE HCL 25 MG CAPSULE PO SCH ×2 (06:15→10:32)
[2018-08-25] MEDS: chlordiazePOXIDE HCL 25 MG CAPSULE PO PRN (06:42)
[2018-08-25] MEDS ORDERED: METHADONE HCL 5 MG TABLET (FOR DETOX USE ONLY) PO SCH (10:00)
[2018-08-25] MEDS: PRENATAL VITAMINS W/ FOLIC ACID TABLET (FP) PO SCH (10:32)
[2018-08-25 13:46] VITALS: BP 142/76; PULSE 92; TEMP 97.4
--- NOTE | 2018-08-25 14:09 | PN ---
[facility] CIWA - CIWA Score Nausea/Vomitin-Mild Nausea/No Vomiting Muscle Tremors: 3 Anxiety: 2 Agitation: 2 Paroxysmal Sweats: 1-Minimal Palms Moist Orientation: 0-Oriented Tacttile Disturbances: 0-None Auditory Disturbances: 0-None Visual Disturbances: 0-None Headache: 1-Very Mild CIWA-Ar Total Score: 10 [facility] COWS - Scale Resting Pulse: 0= [place] 80 or Below Sweatin= Chills/Flushing Restless Observation: 0= Sits Still Pupil Size: 0= Normal to Room Light Bone or Joint Aches: 1= Mild Discomfort Runny Nose/ Eye Tearin= Nasal Congestion GI Upset > 30mins: 2= Nausea/Diarrhea Tremor Observation of Outstretched Hands: 2= Slight Tremor Visible Yawning Observation: 2= >3x During Session Anxiety or Irritability: 1=Feels Anxious/Irritable Goose Flesh Skin: 0=Smooth Skin COWS Score: 10 [facility] Progress Note (SOAP) Subjective: tremor body pains low energy sweating fatigue Objective: 08/25/18 14:09 Vital Signs Temperature 97.4 F L 08/25/18 13:44 Pulse Rate 92 H 08/25/18 13:44 Respiratory Rate 20 08/25/18 13:44 Blood Pressure 142/76 08/25/18 13:44 O2 Sat by Pulse Oximetry (%) Laboratory Last Values WBC 6.5 K/mm3 (4.0-10.0) 08/24/18 07:45 RBC 4.20 M/mm3 (4.00-5.60) 08/24/18 07:45 Hgb 12.6 GM/dL (11.7-16.9) 08/24/18 07:45 Hct 36.2 % (35.4-49) 08/24/18 07:45 MCV 86.1 fl (80-96) 08/24/18 07:45 MCH 29.9 pg (25.7-33.7) 08/24/18 07:45 MCHC 34.7 g/dl (32.0-35.9) 08/24/18 07:45 RDW 15.5 % (11.9-15.9) 08/24/18 07:45 Plt Count 246 K/MM3 (134-434) 08/24/18 07:45 MPV 8.5 fl (7.5-11.1) 08/24/18 07:45 Sodium 137 mmol/L (136-145) 08/24/18 07:45 Potassium 3.7 mmol/L (3.5-5.1) 08/24/18 07:45 Chloride 102 mmol/L (98-107) 08/24/18 07:45 Carbon Dioxide 29 mmol/L (21-32) 08/24/18 07:45 Anion Gap 5 MMOL/L (8-16) L 08/24/18 07:45 BUN 15 mg/dL (7-18) 08/24/18 07:45 Creatinine 0.8 mg/dL (0.55-1.3) 08/24/18 07:45 Creat Clearance w eGFR > 60 (>60) 08/24/18 07:45 Random Glucose 89 mg/dL (74-106) 08/24/18 07:45 Calcium 8.5 mg/dL (8.5-10.1) 08/24/18 07:45 Total Bilirubin 0.2 mg/dL (0.2-1) 08/24/18 07:45 AST 36 U/L (15-37) 08/24/18 07:45 ALT 43 U/L (13-61) 08/24/18 07:45 Alkaline Phosphatase 71 U/L (45-117) 08/24/18 07:45 Total Protein 8.2 g/dl (6.4-8.2) 08/24/18 07:45 Albumin 3.1 g/dl (3.4-5.0) L 08/24/18 07:45 RPR Titer Nonreactive (NONREACTIVE) 08/24/18 07:45 lab noted bp elevation Assessment: 08/25/18 14:09 withdrawl sx 08/25/18 14:10 Plan: continue detox begin clonidine 0.1 mg prn
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
[2018-08-25] MEDS ORDERED: chlordiazePOXIDE 5 MG CAPSULE PO SCH (23:00)
[2018-08-26] MEDS ORDERED: chlordiazePOXIDE HCL 10 MG CAPSULE PO SCH (23:00)
[2018-08-27] MEDS ORDERED: METHADONE HCL 10 MG TABLET (FOR DETOX USE ONLY) PO SCH (10:00)
[2018-08-28] MEDS ORDERED: METHADONE HCL 5 MG TABLET (FOR DETOX USE ONLY) PO SCH (06:00)
== END 2018-08-25 15:03 | disposition left against medical advice (07) | DRG 770 ==
LOC: YASAS 15:38 → Y3N 22:44
PROVIDERS: ADMIT Surgery; ATTEND Surgery
PROC: HZ2ZZZZ Detoxification Services for Substance Abuse Treatment (ICD-10-PCS; principal; 2018-08-23)
DX: F11.23 Opioid dependence with withdrawal (principal); F11.220 Opioid dependence with intoxication, uncomplicated; F10.230 Alcohol dependence with withdrawal, uncomplicated; F14.20 Cocaine dependence, uncomplicated; F17.213 Nicotine dependence, cigarettes, with withdrawal; F41.9 Anxiety disorder, unspecified; Z21 Asymptomatic human immunodeficiency virus [HIV] infection status; Z18.2 Retained plastic fragments; Z91.013 Allergy to seafood
CPT/HCPCS: 36415; 80053; 85027; 86593